=== PATIENT | male | born 1960 | race Caucasian/White ===

== ENCOUNTER 2021-10-01 20:28 | Inpatient (IN) | payer OTHER ==
[~2021-10-01] VITALS: Ht 185.4 cm; Wt 110.0 kg
--- NOTE | 2021-10-01 20:43 | PHYS DOC ---
Past Medical History Past Medical History: High Cholesterol, Hypertension General Adult EDM: Chief Complaint: SHORTNESS OF BREATH HPI: HPI: Patient is a 61 year old male with history of HTN, HLD, and vaccinated for COVID with positive Covid test on 09/27/2021 who presents with shortness of breath and hypoxia prehospital. States that he has had symptoms for 2-3 weeks that have progressively worsened. Was seen at an outside facility and diagnosed with Covid on the . Reportedly did not require oxygen and was discharged home. He has been taking Advil for symptom management. Denies chest pain, lower extremity edema. Has been coughing frequently. Review of Systems: Review of Systems: Constitutional: Reports fever and chills Eyes: Denies change in visual acuity. [] HENT: Reports nasal congestion Respiratory: Reports cough and shortness of breath Cardiovascular: Denies chest pain or edema. [] GI: Denies abdominal pain, nausea, vomiting, bloody stools or diarrhea. [] Musculoskeletal: Denies back pain or joint pain. [] Integument: Denies rash. [] Neurologic: Denies headache, focal weakness or sensory changes. [] Psychiatric: Denies depression or anxiety. [] Heart Score: C/O Chest Pain: No Allergies: Allergies: Allergies Coded Allergies Type Severity Reaction Last Updated Verified No Known Drug Allergies 10/01/21 No Physical Exam: PE: Constitutional: Increased work of breathing, tachypnea in the upper 20s Neck: Normal range of motion, no tenderness, supple, no stridor. [] Cardiovascular:Heart rate regular rhythm, no murmur [] Lungs & Thorax: Crackles bilaterally, tachypnea Abdomen: Bowel sounds normal, soft, no tenderness, no masses, no pulsatile masses. [] Skin: Warm, dry, no erythema, no rash. [] Back: No tenderness, no CVA tenderness. [] Extremities: No tenderness, no cyanosis, no clubbing, ROM intact, no edema. [] Neurologic: Alert and oriented X 3, normal motor function, normal sensory function, no focal deficits noted. [] Psychologic: Affect normal, judgement normal, mood normal. [] Current Patient Data: Labs: Laboratory Tests Test 10/01/21 20:50 White Blood Count 6.1 x10^3/uL Red Blood Count 4.24 x10^6/uL Hemoglobin 13.5 g/dL Hematocrit 38.2 % Mean Corpuscular Volume 90 fL Mean Corpuscular Hemoglobin 32 pg Mean Corpuscular Hemoglobin Concent 35 g/dL Red Cell Distribution Width 13.6 % Platelet Count 349 x10^3/uL Neutrophils (%) (Auto) 71 % Lymphocytes (%) (Auto) 13 % Monocytes (%) (Auto) 16 % Eosinophils (%) (Auto) 1 % Basophils (%) (Auto) 0 % Neutrophils # (Auto) 4.3 x10^3/uL Lymphocytes # (Auto) 0.8 x10^3/uL Monocytes # (Auto) 0.9 x10^3/uL Eosinophils # (Auto) 0.0 x10^3/uL Basophils # (Auto) 0.0 x10^3/uL Sodium Level 139 mmol/L Potassium Level 3.1 mmol/L Chloride Level 105 mmol/L Carbon Dioxide Level 25 mmol/L Anion Gap 9 Blood Urea Nitrogen 15 mg/dL Creatinine 1.2 mg/dL Estimated GFR (Cockcroft-Gault) 61.6 BUN/Creatinine Ratio 13 Glucose Level 95 mg/dL Calcium Level 8.0 mg/dL Total Bilirubin Pending Aspartate Amino Transf (AST/SGOT) Pending Alanine Aminotransferase (ALT/SGPT) Pending Alkaline Phosphatase Pending Total Protein Pending Albumin Pending Albumin/Globulin Ratio Pending Current Medications Medications (Trade) Dose Ordered Sig/Maia Route PRN Reason Start Time Stop Time Status Last Admin Dose Admin Dexamethasone Sodium Phosphate (Decadron) 6 mg 1X ONCE IVP 10/01/21 21:00 10/01/21 21:01 DC Potassium Chloride (Klor-Con) 40 meq 1X ONCE PO 10/01/21 21:30 10/01/21 21:31 EKG: EKG: [] Sinus rhythm. Rate 77. Normal axis. Normal intervals. No ST elevation or depression. No pathologic Q waves, or T wave inversion. Radiology/Procedures: Radiology/Procedures: [] Impression: [facility] [address] [place] [address] IMAGING REPORT Signed PATIENT: YVONNE THOMPSON ACCOUNT: [id number] : 1960 LOCATION: ER AGE: 61 SEX: M EXAM STATUS: REG ER ORD. PHYSICIAN: NICO MOREL MD REASON: covid +, SOB PROCEDURE: CHEST AP ONLY AP chest. HISTORY: Covid positive, short of breath AP view was taken of the chest. There are patchy bilateral infiltrates consistent with Covid pneumonia. Heart is normal in size. There is no effusion. IMPRESSION: 1. Bilateral infiltrates. Electronically signed by: Gee Subramanian MD (10/01/2021 9:12 PM) [facility] DICTATED and SIGNED BY: GEE SUBRAMANIAN MD DATE: 10/01/[id number] 0 Course & Med Decision Making: Course & Med Decision Making Pertinent Labs and Imaging studies reviewed. (See chart for details) Patient is a 61-year-old male unvaccinated for COVID who presents with dyspnea and hypoxia after having a positive Covid test on 09/27/2021. 86% on room air. Recovered with 4 L/min nasal cannula. CXR consistent with covid pna with patchy interstitial infiltrates bilaterally. Dexamethasone ordered. Patient will clearly require admission for respiratory failure with hypoxia 2/2 covid. Dragon Disclaimer: Dragon Disclaimer: This electronic medical record was generated, in whole or in part, using a voice recognition dictation system. Departure Departure Impression: Primary Impression: COVID-19 Additional Impression: Respiratory failure with hypoxia Disposition: ADMITTED INPATIENT Admitting Physician: PEDRO Velez) Condition: STABLE NICO MOREL MD Oct 01, 2021 20:43
[2021-10-01 21:00] LABS: BASO % 0 % (0-3); EOS % 1 % (0-3); HEMATOCRIT 38.2 % (39.0-53.0); HEMOGLOBIN 13.5 g/dL (13.0-17.5); LYMPH # 0.8 x10^3/uL (1.0-4.8); LYMPH % 13 % (24-48); MEAN CORPUSCULAR HEMOGLOBIN 32 pg (25-35); MEAN CORPUSCULAR HGB CONC 35 g/dL (31-37); MEAN CORPUSCULAR VOLUME 90 fL (79-100); MONO # 0.9 x10^3/uL (0.0-1.1); MONO % 16 % (0-9); NEUT # 4.3 x10^3/uL (1.8-7.7); NEUT % 71 % (31-73); PLATELET COUNT 349 x10^3/uL (140-400); RED BLOOD COUNT 4.24 x10^6/uL (4.30-5.70); RED CELL DISTRIBUTION WIDTH 13.6 % (11.5-14.5); WHITE BLOOD COUNT 6.1 x10^3/uL (4.0-11.0)
[2021-10-01] MEDS ORDERED: DEXAMETHASONE SOD PHOS 4 MG/ML VIAL IVP ONE (21:00)
[2021-10-01 21:09] LABS: CREATININE 1.2 mg/dL (0.7-1.3); GFR 61.6; POTASSIUM 3.1 mmol/L (3.5-5.1)
[2021-10-01] MEDS ORDERED: SIMV40TA18 PO (21:11)
[2021-10-01] MEDS ORDERED: ONDA4TAB12 PO (21:13)
[2021-10-01] MEDS ORDERED: LISI-130 PO (21:13)
[2021-10-01] MEDS ORDERED: CHOL10004 PO (21:13)
[2021-10-01] MEDS ORDERED: CITA40TA6 PO (21:13)
[2021-10-01] MEDS ORDERED: ASPI-630 PO (21:13)
[2021-10-01] MEDS ORDERED: LEVO-101 PO (21:13)
[2021-10-01] MEDS ORDERED: ASCO100T4 PO (21:13)
[2021-10-01 21:15] LABS: ALBUMIN 2.6 g/dL (3.4-5.0); ALBUMIN/GLOBULIN RATIO 0.5 (1.0-1.7); TOTAL BILIRUBIN 0.9 mg/dL (0.2-1.0); TOTAL PROTEIN 7.7 g/dL (6.4-8.2)
--- NOTE | 2021-10-01 21:15 | RAD ---
AP chest. HISTORY: Covid positive, short of breath AP view was taken of the chest. There are patchy bilateral infiltrates consistent with Covid pneumoni a. Heart is normal in size. There is no effusion. IMPRESSION: 1. Bilateral infiltrates. Electronically signed by: Gee Subramanian MD (10/01/2021 9:12 PM) [facility]
[2021-10-01] MEDS ORDERED: POTASSIUM CHLORIDE 20 MEQ TABLET.ER. PO ONE (21:30)
[2021-10-01 23:00] VITALS: BP 124/58
--- NOTE | 2021-10-02 00:35 | EKG ---
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
[2021-10-02 02:45] VITALS: BP 124/74
--- NOTE | 2021-10-02 04:48 | NUR ---
Pt's HR 30-40's during the noc. Pt asymptomatic. No complaints noted. Bp taken when pt's HR drops and currently within normal limits. Pt states not being aware of having low HR. 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 Pt HR increasing to 50-60's when this nurse wakes up the pt. No further complaints at this time. Paged global position system technician Physician to notify of pt's HR.
[2021-10-02 04:50] VITALS: BP 117/74
--- NOTE | 2021-10-02 07:07 | PDOC1 ---
History and Physical Date of Admission Date of Admission DATE: 10/02/21 TIME: 07:06 Identification/Chief Complaint Chief Complaint Shortness of breath Source Source: Patient History of Present Illness History of Present Illness Mr Eduardo is a 61 year old male with history of HTN, HLD, and hypothyroidism who presents via EMS c/o worsening shortness of breath. He notes positive Covid test on 09/26/2021 at [facility] who presents with shortness of breath and hypoxia, notably per EMS with O2 saturations 86% on arrival. States that he has had symptoms for 3 weeks that have progressively worsened. Reportedly did not require oxygen when seen in the ED on 09/26/21 and was discharged home with recommendation for supportive care with NSAIDs Denies chest pain, lower extremity edema. Has been coughing frequently. Loss of appetite. 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 Does not drink, smoke or take illicit drugs. Labs with WBC 6.1, Hb 13.5, platelets 349, NA 139, K3.1, BUN 15, CR 1.2, glucose 95, calcium 8, magnesium 2.1, bilirubin 0.9, AST 37, ALT 37, alk phos 39, al bumin 2.6 Chest radiograph with bilateral infiltrates EKG sinus rhythm at 77 bpm normal axis and intervals no ST depressions or TWI. Admitted for further care Past Medical History Cardiovascular: HTN Endocrine: Hypothyroidism Past Surgical History Past Surgical History: No pertinent history Family History Family History: High Cholestrol, Hypertension Social History Smoke: No ALCOHOL: none Drugs: None Current Problem List Problem List Problems Medical Problems: (1) COVID-19 Status: Acute (2) Respiratory failure with hypoxia Status: Acute Current Medications Current Medications Current Medications Dexamethasone Sodium Phosphate (Decadron) 6 mg 1X ONCE IVP Last administered on 10/01/21at 21:23; Start 10/01/21 at 21:00; Stop 10/01/21 at 21:01; Status DC Potassium Chloride (Klor-Con) 40 meq 1X ONCE PO Last administered on 10/01/21at 21:23; Start 10/01/21 at 21:30; Stop 10/01/21 at 21:31; Status DC Active Scripts Active Reported Ondansetron Odt (Ondansetron) 4 Mg Tab.rapdis 1 Tab PO PRN Q6-8HRS Vitamin C (Ascorbic Acid) 100 Mg Tablet 1 Tab PO DAILY 30 Days Vitamin D3 (Vitamin D) 25 Mcg Tablet 25 Mcg PO DAILY 1,000 UNITS = 25 MCG Aspirin 81 Mg Tab.chew 1 Tab PO DAILY Lisinopril 40 Mg Tablet 1 Tab PO DAILY Synthroid (Levothyroxine Sodium) 100 Mcg Tablet 1 Tab PO DAILY Citalopram Hbr (Citalopram Hydrobromide) 40 Mg Tablet 1 Tab PO DAILY Simvastatin 40 Mg Tablet 1 Tab PO QHS Allergies Allergies: Coded Allergies: No Known Drug Allergies (Unverified , 10/01/21) ROS General: YES: Chills, Night Sweats, Fatigue, Malaise, Appetite; No: Other PSYCHOLOGICAL ROS: No: Anxiety, Behavioral Disorder, Concentration difficultie, Decreased libido, Depression, Disorientation, Hallucinations, Hostility, Irritablity, Memory difficulties, Mood Swings, Obsessive thoughts, Physical abuse, Sexual abuse, Sleep disturbances, Suicidal ideation, Other Eyes: No Blurry vision, No Decreased vision, No Double vision, No Dry eyes, No Excessive tearing, No Eye Pain, No Itchy Eyes, No Loss of vision, No Photophobia, No Scotomata, No Uses contacts, No Uses glasses, No Other HEENT: YES: Heacaches, Nasal congestion, Nasal discharge; No: Visual Changes, Hearing change, Oral lesions, Sinus pain, Sore Throat, Epistaxis, Sneezing, Snoring, Tinnitus, Vertigo, Vocal changes, Other ALLERGY AND IMMUNOLOGY: No: Hives, Insect Bite Sensitivity, Itchy/Watery Eyes, Nasal Congestion, Post Nasal Drip, Seasonal Allergies, Other Hematological and Lymphatic: No: Bleeding Problems, Blood Clots, Blood Transfusions, Brusing, Night Sweats, Pallor, Swollen Lymph Nodes, Other ENDOCRINE: No: Breast Changes, Galactorrhea, Hair Pattern Changes, Hot Flashes, Malaise/lethargy, Mood Swings, Palpitations, Polydipsia/polyuria, Skin Changes, Temperature Intolerance, Unexpected Weight Changes, Other Breast: No New/Changing Breast Lumps, No Nipple changes, No Nipple discharge, No Other Respiratory: YES: Cough, Shortness of breath, SOB with excertion; No: Hemoptysis, Orthopnea, Pleuritic Pain, Sputum Changes, Stridor, Tachypnea, Wheezing, Other Cardiovascular: No Chest Pain, No Palpitations, No Orthopnea, No Paroxysmal Noc. Dyspnea, No Edema, No Lt Headedness, No Other Gastrointestinal: Yes Nausea, Yes Diarrhea; No Vomiting, No Abdominal Pain, No Constipation, No Melena, No Hematochezia, No Other Genitourinary: No Dysuria, No Frequency, No Incontinence, No Hematuria, No Retention, No Discharge, No Urgency, No Pain, No Flank Pain, No Other, No , No , No , No , No , No , No Musculoskeletal: Yes Muscle Pain, Yes Muscular Weakness; No Gait Disturbance, No Joint Pain, No Joint Stiffness, No Joint Swelling, No Pain In:, No Swelling In:, No Other Neurological: No Behavorial Changes, No Bowel/Bladder ControlChng, No Confusion, No Dizziness, No Gait Disturbance, No Headaches, No Impaired Coord/balance, No Memory Loss, No Numbness/Tingling, No Seizures, No Speech Problems, No Tremors, No Visual Changes, No Weakness, No Other Skin: No Dry Skin, No Eczema, No Hair Changes, No Lumps, No Mole Changes, No Mottling, No Nail Changes, No Pruritus, No Rash, No Skin Lesion Changes, No Other, No Acne Physical Exam General: Alert, Oriented X3, Cooperative, moderate distress HEENT: Atraumatic, PERRLA, EOMI, Mucous membr. moist/pink Lungs: Clear to auscultation, Normal air movement Heart: S1S2, RRR, no thrills, no rubs, no gallops, no murmurs Abdomen: Normal bowel sounds, Soft, No tenderness, No hepatosplenomegaly, No masses Rectal Exam: not examined Extremities: No clubbing, No cyanosis, No edema, Normal pulses, No tenderness/swelling Skin: No rashes, No breakdown, No significant lesion Neuro: Normal gait, Normal speech, Strength at 5/5 X4 ext, Normal tone, Sensati on intact, Cranial nerves 3-12 NL, Reflexes 2+ Psych/Mental Status: Mental status NL, Mood NL Vitals Vitals Vital Signs Date Time Temp Pulse Resp B/P (MAP) Pulse Ox O2 Delivery O2 Flow Rate FiO2 10/02/21 04:50 41 18 117/74 (88) 96 Nasal Cannula 4.0 10/02/21 04:16 97.3 97.3 Labs Labs Laboratory Tests Test 1/30/22 20:50 White Blood Count 6.1 x10^3/uL (4.0-11.0) Red Blood Count 4.24 x10^6/uL (4.30-5.70) Hemoglobin 13.5 g/dL (13.0-17.5) Hematocrit 38.2 % (39.0-53.0) Mean Corpuscular Volume 90 fL (79-100) Mean Corpuscular Hemoglobin 32 pg (25-35) Mean Corpuscular Hemoglobin Concent 35 g/dL (31-37) Red Cell Distribution Width 13.6 % (11.5-14.5) Platelet Count 349 x10^3/uL (140-400) Neutrophils (%) (Auto) 71 % (31-73) Lymphocytes (%) (Auto) 13 % (24-48) Monocytes (%) (Auto) 16 % (0-9) Eosinophils (%) (Auto) 1 % (0-3) Basophils (%) (Auto) 0 % (0-3) Neutrophils # (Auto) 4.3 x10^3/uL (1.8-7.7) Lymphocytes # (Auto) 0.8 x10^3/uL (1.0-4.8) Monocytes # (Auto) 0.9 x10^3/uL (0.0-1.1) Eosinophils # (Auto) 0.0 x10^3/uL (0.0-0.7) Basophils # (Auto) 0.0 x10^3/uL (0.0-0.2) Sodium Level 139 mmol/L (136-145) Potassium Level 3.1 mmol/L (3.5-5.1) Chloride Level 105 mmol/L (98-107) Carbon Dioxide Level 25 mmol/L (21-32) Anion Gap 9 (6-14) Blood Urea Nitrogen 15 mg/dL (8-26) Creatinine 1.2 mg/dL (0.7-1.3) Estimated GFR (Cockcroft-Gault) 61.6 BUN/Creatinine Ratio 13 (6-20) Glucose Level 95 mg/dL (70-99) Calcium Level 8.0 mg/dL (8.5-10.1) Magnesium Level 2.1 mg/dL (1.8-2.4) Total Bilirubin 0.9 mg/dL (0.2-1.0) Aspartate Amino Transf (AST/SGOT) 37 U/L (15-37) Alanine Aminotransferase (ALT/SGPT) 37 U/L (16-63) Alkaline Phosphatase 39 U/L (46-116) Total Protein 7.7 g/dL (6.4-8.2) Albumin 2.6 g/dL (3.4-5.0) Albumin/Globulin Ratio 0.5 (1.0-1.7) Laboratory Tests Test 10/01/21 20:50 White Blood Count 6.1 x10^3/uL (4.0-11.0) Red Blood Count 4.24 x10^6/uL (4.30-5.70) Hemoglobin 13.5 g/dL (13.0-17.5) Hematocrit 38.2 % (39.0-53.0) Mean Corpuscular Volume 90 fL (79-100) Mean Corpuscular Hemoglobin 32 pg (25-35) Mean Corpuscular Hemoglobin Concent 35 g/dL (31-37) Red Cell Distribution Width 13.6 % (11.5-14.5) Platelet Count 349 x10^3/uL (140-400) Neutrophils (%) (Auto) 71 % (31-73) Lymphocytes (%) (Auto) 13 % (24-48) Monocytes (%) (Auto) 16 % (0-9) Eosinophils (%) (Auto) 1 % (0-3) Basophils (%) (Auto) 0 % (0-3) Neutrophils # (Auto) 4.3 x10^3/uL (1.8-7.7) Lymphocytes # (Auto) 0.8 x10^3/uL (1.0-4.8) Monocytes # (Auto) 0.9 x10^3/uL (0.0-1.1) Eosinophils # (Auto) 0.0 x10^3/uL (0.0-0.7) Basophils # (Auto) 0.0 x10^3/uL (0.0-0.2) Sodium Level 139 mmol/L (136-145) Potassium Level 3.1 mmol/L (3.5-5.1) Chloride Level 105 mmol/L (98-107) Carbon Dioxide Level 25 mmol/L (21-32) Anion Gap 9 (6-14) Blood Urea Nitrogen 15 mg/dL (8-26) Creatinine 1.2 mg/dL (0.7-1.3) Estimated GFR (Cockcroft-Gault) 61.6 BUN/Creatinine Ratio 13 (6-20) Glucose Level 95 mg/dL (70-99) Calcium Level 8.0 mg/dL (8.5-10.1) Magnesium Level 2.1 mg/dL (1.8-2.4) Total Bilirubin 0.9 mg/dL (0.2-1.0) Aspartate Amino Transf (AST/SGOT) 37 U/L (15-37) Alanine Aminotransferase (ALT/SGPT) 37 U/L (16-63) Alkaline Phosphatase 39 U/L (46-116) Total Protein 7.7 g/dL (6.4-8.2) Albumin 2.6 g/dL (3.4-5.0) Albumin/Globulin Ratio 0.5 (1.0-1.7) VTE Prophylaxis Ordered VTE Prophylaxis Devices: No VTE Pharmacological Prophylaxi: Yes Assessment/Plan Assessment/Plan A/P: Acute respiratory failure with hypoxia - due to COVID 19. Will treat with steroids, supportive care, remdesivir COVID 19 - decadron, supportive care, O2 HTN - will reconcile home medications Hypothyroidism - cont home levothyroxine HLD - cont statin Hypokalemia - likely nutritional, will replace, follow mag Bradycardia - while sleeping, HR increases upon awakening. Will monitor FEN - regular diet PPX - lovenox FULL CODE Dispo - inpatient Justifications for Admission Other Justification KARLA LANIER MD Oct 02, 2021 07:07
[2021-10-02] MEDS ORDERED: ACETAMINOPHEN 325 MG TABLET. PO PRN (07:15)
[2021-10-02] MEDS ORDERED: fentaNYL PF VIAL 100 MCG/2 ML VIAL IVP PRN (07:15)
[2021-10-02] MEDS ORDERED: guaiFENesin DM 200MG/20MG 10 ML SYRUP PO PRN (07:15)
[2021-10-02] MEDS ORDERED: ONDANSETRON PF 4 MG/2 ML VIAL. IVP PRN (07:15)
[2021-10-02] MEDS ORDERED: KETOROLAC 30 MG/ML VIAL. IVP PRN (07:15)
[2021-10-02] MEDS ORDERED: traMADol 50 MG TABLET PO PRN (07:15)
[2021-10-02] MEDS: DEXAMETHASONE SOD PHOS 4 MG/ML VIAL IVP SCH (08:40)
[2021-10-02] MEDS: ENOXAPARIN 40 MG/0.4 ML SYRINGE. SQ SCH (08:40)
[2021-10-02] MEDS: POTASSIUM CL 20MEQ D5-0.45NACL 1,000 ML IV SCH ×2 (08:41→21:58)
[2021-10-02 09:17] LABS: ALBUMIN 2.5 g/dL (3.4-5.0); ALBUMIN/GLOBULIN RATIO 0.5 (1.0-1.7); CALCIUM 8.3 mg/dL (8.5-10.1); POTASSIUM 4.1 mmol/L (3.5-5.1); TOTAL BILIRUBIN 0.8 mg/dL (0.2-1.0); TOTAL PROTEIN 7.1 g/dL (6.4-8.2)
--- NOTE | 2021-10-02 17:19 | NUR ---
Nurse's note: The patient arrived on the unit at 1640 via bed. He is awake, alert, oriented x4, and denies pain. Oxygen 4 liters per nasal cannula was placed with O2 saturation at 93%; hooked to classroom monitor. He's oriented to his room and unit policies; call light placed within reach.
[2021-10-02 19:00] VITALS: BP 145/70
[2021-10-02] MEDS ORDERED: ONDANSETRON ODT 4 MG TAB.RAPDIS. PO PRN (20:15)
[2021-10-02] MEDS: SIMVASTATIN 40 MG TABLET. PO SCH (20:30)
[2021-10-02 23:32] VITALS: BP 131/74
[2021-10-03] MEDS: ZOLPIDEM 5 MG TABLET. PO PRN ×2 (00:17→20:45)
[2021-10-03 03:11] VITALS: BP 118/79
[2021-10-03] MEDS: LEVOTHYROXINE 100 MCG TABLET PO SCH (05:35)
[2021-10-03 07:00] VITALS: BP 132/79
[2021-10-03 08:01] LABS: HEMOGLOBIN 12.3 g/dL (13.0-17.5); RED BLOOD COUNT 3.91 x10^6/uL (4.30-5.70); RED CELL DISTRIBUTION WIDTH 13.8 % (11.5-14.5); WHITE BLOOD COUNT 11.9 x10^3/uL (4.0-11.0)
[2021-10-03] MEDS: CITALOPRAM 20 MG TABLET. PO SCH (08:35)
[2021-10-03] MEDS: ASCORBIC ACID 500 MG TABLET PO SCH (08:35)
[2021-10-03] MEDS: DEXAMETHASONE SOD PHOS 4 MG/ML VIAL IVP SCH (08:35)
[2021-10-03] MEDS: CHOLECALCIFEROL (VITAMIN D3) 1,000 UNIT TABLET PO SCH (08:35)
[2021-10-03] MEDS: ASPIRIN CHEWABLE 81 MG TABLET. PO SCH (08:36)
[2021-10-03] MEDS: ENOXAPARIN 40 MG/0.4 ML SYRINGE. SQ SCH (08:36)
[2021-10-03] MEDS: LISINOPRIL 20 MG TABLET PO SCH (08:36)
[2021-10-03 08:41] LABS: ALBUMIN 2.4 g/dL (3.4-5.0); ALBUMIN/GLOBULIN RATIO 0.6 (1.0-1.7); POTASSIUM 4.4 mmol/L (3.5-5.1); TOTAL BILIRUBIN 0.5 mg/dL (0.2-1.0); TOTAL PROTEIN 6.5 g/dL (6.4-8.2)
[2021-10-03] MEDS ORDERED: REMDESIVIR LOAD in IV NORMAL SALINE 250ML TV IV ONE (09:00)
[2021-10-03 11:00] VITALS: BP 126/62
--- NOTE | 2021-10-03 13:04 | PDOC ---
[employer] PROGRESS NOTE Date of Service DOS: DATE: 10/03/21 TIME: 13:01 Chief Complaint Chief Complaint Assessment/Plan Acute respiratory failure with hypoxia - due to COVID 19. Will treat with steroids, supportive care, remdesivir COVID 19 - decadron, supportive care, O2 HTN - will reconcile home medications Hypothyroidism - cont home levothyroxine HLD - cont statin Hypokalemia - likely nutritional, will replace, follow mag Bradycardia - while sleeping, HR increases upon awakening. Will monitor FEN - regular diet PPX - lovenox FULL CODE Dispo - inpatient History of Present Illness History of Present Illness 61 year old male with history of HTN, HLD, and hypothyroidism who presents via EMS c/o worsening shortness of breath. He notes positive Covid test on 09/26/2021 at [facility] who presents with shortness of breath and hypoxia, notably per EMS with O2 saturations 86% on arrival. States that he has had symptoms for 3 weeks that have progressively worsened. Reportedly did not require oxygen when seen in the ED on 09/26/21 and was discharged home with recommendation for supportive care with NSAIDs Denies chest pain, lower extremity edema. Has been coughing frequently. Loss of appetite. 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 Does not drink, smoke or take illicit drugs. Labs with WBC 6.1, Hb 13.5, platelets 349, NA 139, K3.1, BUN 15, CR 1.2, glucose 95, calcium 8, magnesium 2.1, bilirubin 0.9, AST 37, ALT 37, alk phos 39, albumin 2.6 Chest radiograph with bilateral infiltrates EKG sinus rhythm at 77 bpm normal axis and intervals no ST depressions or TWI. Admitted for further care 10/03/2021 No acute events night. Patient seen examined bedside. Patient saturating 94% on 4 L nasal cannula. Not dyspneic upon my encounter. Patient's chart, labs, images were reviewed and discussed with RN Vitals/I&O Vitals/I&O: Vital Signs Date Time Temp Pulse Resp B/P (MAP) Pulse Ox O2 Delivery O2 Flow Rate FiO2 10/03/21 11:00 97.6 61 17 126/62 (83) 95 Nasal Cannula 4.0 97.6 I & O 1/10/02/21 10/03/21 15:00 23:00 07:00 Intake Total 180 ml Output Total 200 ml 400 ml Balance -200 ml 180 ml -400 ml Physical Exam General: Alert, Oriented X3, Cooperative, moderate distress Abdomen: Normal bowel sounds, Soft, No tenderness, No hepatosplenomegaly, No masses Extremities: No clubbing, No cyanosis, No edema, Normal pulses, No tenderness/swelling Skin: No rashes, No breakdown, No significant lesion Labs Labs: Laboratory Tests Test 10/03/21 06:20 10/03/21 06:30 Sodium Level 143 mmol/L (136-145) Potassium Level 4.4 mmol/L (3.5-5.1) Chloride Level 107 mmol/L (98-107) Carbon Dioxide Level 29 mmol/L (21-32) Anion Gap 7 (6-14) Blood Urea Nitrogen 20 mg/dL (8-26) Creatinine 1.0 mg/dL (0.7-1.3) Estimated GFR (Cockcroft-Gault) 76.0 BUN/Creatinine Ratio 20 (6-20) Glucose Level 129 mg/dL (70-99) Calcium Level 8.0 mg/dL (8.5-10.1) Total Bilirubin 0.5 mg/dL (0.2-1.0) Aspartate Amino Transf (AST/SGOT) 29 U/L (15-37) Alanine Aminotransferase (ALT/SGPT) 33 U/L (16-63) Alkaline Phosphatase 37 U/L (46-116) Total Protein 6.5 g/dL (6.4-8.2) Albumin 2.4 g/dL (3.4-5.0) Albumin/Globulin Ratio 0.6 (1.0-1.7) White Blood Count 11.9 x10^3/uL (4.0-11.0) Red Blood Count 3.91 x10^6/uL (4.30-5.70) Hemoglobin 12.3 g/dL (13.0-17.5) Hematocrit 36.0 % (39.0-53.0) Mean Corpuscular Volume 92 fL (79-100) Mean Corpuscular Hemoglobin 32 pg (25-35) Mean Corpuscular Hemoglobin Concent 34 g/dL (31-37) Red Cell Distribution Width 13.8 % (11.5-14.5) Platelet Count 386 x10^3/uL (140-400) Assessment and Plan Assessmemt and Plan Problems Medical Problems: (1) COVID-19 Status: Acute (2) Respiratory failure with hypoxia Status: Acute Comment Review of Relevant I have reviewed the following items michelle (where applicable) has been applied. Medications: Current Medications Medications (Trade) Dose Ordered Sig/Maia Route PRN Reason Start Time Stop Time Status Last Admin Dose Admin Aspirin (Aspirin Chewable) 81 mg DAILY PO 10/03/21 09:00 10/03/21 08:36 Vitamin D (Vitamin D3) 1,000 unit DAILY PO 10/03/21 09:00 10/03/21 08:35 Levothyroxine Sodium (Synthroid) 100 mcg DAILY07 PO 10/03/21 07:00 10/03/21 05:35 Lisinopril (Prinivil) 40 mg DAILY PO 10/03/21 09:00 10/03/21 08:36 Simvastatin (Zocor) 40 mg QHS PO 10/02/21 21:00 10/02/21 20:30 Ascorbic Acid (Vitamin C) 500 mg DAILY PO 10/03/21 09:00 10/03/21 08:35 Citalopram Hydrobromide (CeleXA) 40 mg DAILY PO 10/03/21 09:00 10/03/21 08:35 Zolpidem Tartrate (Ambien) 5 mg PRN QHS PRN PO INSOMNIA, MAY REPEAT IN 1HR 10/03/21 00:00 10/03/21 00:17 Remdesivir 200 mg/ Sodium Chloride 210 ml @ 210 mls/hr 1X ONCE IV 10/03/21 09:00 10/03/21 09:59 DC 10/03/21 09:50 Justifications for Admission Other Justification CHRIS FOUNTAIN MD Oct 03, 2021 13:04
--- NOTE | 2021-10-03 14:03 | NUR ---
SW following. Discussed with RN, pt from home, 4L (does not use oxygen at home), regular diet, COVID-19 positive. Pt on Remdesivir. Oxygen will cost $120 a month if pt requires upon discharge due to self pay status. Med Assist following for self pay. SW will continue to follow.
[2021-10-03 15:00] VITALS: BP 112/69
[2021-10-03 19:00] VITALS: BP_SYST 133; BP_SYST 18; BP_DIAS 65; BP_DIAS 82
[2021-10-03] MEDS: SIMVASTATIN 40 MG TABLET. PO SCH (20:45)
[2021-10-03 23:00] VITALS: BP 129/68
[2021-10-04 03:00] VITALS: BP 137/77
[2021-10-04] MEDS: LEVOTHYROXINE 100 MCG TABLET PO SCH (05:54)
[2021-10-04 07:00] VITALS: BP 137/79
[2021-10-04] MEDS: ENOXAPARIN 40 MG/0.4 ML SYRINGE. SQ SCH (08:17)
[2021-10-04] MEDS: CITALOPRAM 20 MG TABLET. PO SCH (08:17)
[2021-10-04] MEDS: CHOLECALCIFEROL (VITAMIN D3) 1,000 UNIT TABLET PO SCH (08:17)
[2021-10-04] MEDS: ASCORBIC ACID 500 MG TABLET PO SCH (08:17)
[2021-10-04] MEDS: ASPIRIN CHEWABLE 81 MG TABLET. PO SCH (08:17)
[2021-10-04] MEDS: DEXAMETHASONE SOD PHOS 4 MG/ML VIAL IVP SCH (08:18)
[2021-10-04] MEDS: LISINOPRIL 20 MG TABLET PO SCH (08:18)
[2021-10-04 08:53] LABS: ALBUMIN 2.4 g/dL (3.4-5.0); ALBUMIN/GLOBULIN RATIO 0.5 (1.0-1.7); TOTAL BILIRUBIN 0.5 mg/dL (0.2-1.0); TOTAL PROTEIN 6.8 g/dL (6.4-8.2)
[2021-10-04] MEDS: REMDESIVIR 100mg in NORMAL SALINE 250ML X 4 DAYS IV SCH (09:56)
[2021-10-04 11:00] VITALS: BP 127/75
--- NOTE | 2021-10-04 11:09 | PDOC ---
[employer] PROGRESS NOTE Date of Service DOS: DATE: 10/04/21 TIME: 11:05 Chief Complaint Chief Complaint Acute respiratory failure with hypoxia - due to COVID 19. Will treat with steroids, supportive care, remdesivir COVID 19 - decadron, supportive care, O2 HTN - will reconcile home medications Hypothyroidism - cont home levothyroxine HLD - cont statin Hypokalemia - likely nutritional, will replace, follow mag Bradycardia - while sleeping, HR increases upon awakening. Will monitor History of Present Illness History of Present Illness 61 year old male with history of HTN, HLD, and hypothyroidism who presents via EMS c/o worsening shortness of breath. He notes positive Covid test on 09/26/2021 at [facility] who presents with shortness of breath and hypoxia, notably per EMS with O2 saturations 86% on arrival. States that he has had symptoms for 3 weeks that have progressively worsened. Reportedly did not require oxygen when seen in the ED on 09/26/21 and was discharged home with recommendation for supportive care with NSAIDs Denies chest pain, lower extremity edema. Has been coughing frequently. Loss of appetite. 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 Does not drink, smoke or take illicit drugs. Labs with WBC 6.1, Hb 13.5, platelets 349, NA 139, K3.1, BUN 15, CR 1.2, glucose 95, calcium 8, magnesium 2.1, bilirubin 0.9, AST 37, ALT 37, alk phos 39, albumin 2.6 Chest radiograph with bilateral infiltrates EKG sinus rhythm at 77 bpm normal axis and intervals no ST depressions or TWI. Admitted for further care 10/03/2021 No acute events night. Patient seen examined bedside. Patient saturating 94% on 4 L nasal cannula. Not dyspneic upon my encounter. Patient's chart, labs, images were reviewed and discussed with RN 10/04/2021 Patient seen and examined. Patient is on Day 1 of Remdesivir. Chart Reviewed Discussed with RN Vitals/I&O Vitals/I&O: Vital Signs Date Time Temp Pulse Resp B/P (MAP) Pulse Ox O2 Delivery O2 Flow Rate FiO2 10/04/21 08:18 49 137/79 10/04/21 08:00 Nasal Cannula 4.0 10/04/21 07:00 97.1 18 94 97.1 I & O 10/03/21 10/03/21 10/04/21 15:00 23:00 07:00 Intake Total 480 ml 240 ml 200 ml Output Total 600 ml 250 ml Balance 480 ml -360 ml -50 ml Physical Exam General: Alert, Oriented X3, Cooperative, moderate distress Abdomen: Normal bowel sounds, Soft, No tenderness, No hepatosplenomegaly, No masses Extremities: No clubbing, No cyanosis, No edema, Normal pulses, No tenderness/swelling Skin: No rashes, No breakdown, No significant lesion Labs Labs: Laboratory Tests Test 10/04/21 08:15 Sodium Level 144 mmol/L (136-145) Potassium Level 4.0 mmol/L (3.5-5.1) Chloride Level 109 mmol/L (98-107) Carbon Dioxide Level 25 mmol/L (21-32) Anion Gap 10 (6-14) Blood Urea Nitrogen 19 mg/dL (8-26) Creatinine 1.0 mg/dL (0.7-1.3) Estimated GFR (Cockcroft-Gault) 76.0 BUN/Creatinine Ratio 19 (6-20) Glucose Level 84 mg/dL (70-99) Calcium Level 8.0 mg/dL (8.5-10.1) Total Bilirubin 0.5 mg/dL (0.2-1.0) Aspartate Amino Transf (AST/SGOT) 30 U/L (15-37) Alanine Aminotransferase (ALT/SGPT) 38 U/L (16-63) Alkaline Phosphatase 36 U/L (46-116) Total Protein 6.8 g/dL (6.4-8.2) Albumin 2.4 g/dL (3.4-5.0) Albumin/Globulin Ratio 0.5 (1.0-1.7) Assessment and Plan Assessmemt and Plan Assessment: Acute respiratory failure with hypoxia - due to COVID 19. Will treat with steroids, supportive care, remdesivir COVID 19 - decadron, supportive care, O2 HTN - will reconcile home medications Hypothyroidism - cont home levothyroxine HLD - cont statin Hypokalemia - likely nutritional, will replace, follow mag Bradycardia - while sleeping, HR increases upon awakening. Will monitor Plan: Continue covid protocol: Remdesivir, steroids, multivitamins, aspirin, lovenox Home Meds DVT prophylaxis Full code Encourage PO intake Comment Review of Relevant I have reviewed the following items michelle (where applicable) has been applied. Medications: Current Medications Medications (Trade) Dose Ordered Sig/Maia Route PRN Reason Start Time Stop Time Status Last Admin Dose Admin Remdesivir 100 mg/ Sodium Chloride 230 ml @ 460 mls/hr Q24H IV 10/04/21 09:00 10/07/21 09:29 10/04/21 09:56 Justifications for Admission Other Justification MABLE MORALES III DO Oct 04, 2021 11:09
[2021-10-04 15:00] VITALS: BP 127/73
[2021-10-04 19:00] VITALS: BP 119/65
[2021-10-04] MEDS: SIMVASTATIN 40 MG TABLET. PO SCH (21:50)
[2021-10-04 23:07] VITALS: BP 155/82
[2021-10-05 02:43] VITALS: BP 156/77
[2021-10-05 07:00] VITALS: BP 151/93
[2021-10-05] MEDS: CITALOPRAM 20 MG TABLET. PO SCH (08:31)
[2021-10-05] MEDS: ASCORBIC ACID 500 MG TABLET PO SCH (08:31)
[2021-10-05] MEDS: ASPIRIN CHEWABLE 81 MG TABLET. PO SCH (08:31)
[2021-10-05] MEDS: DEXAMETHASONE SOD PHOS 4 MG/ML VIAL IVP SCH (08:31)
[2021-10-05] MEDS: CHOLECALCIFEROL (VITAMIN D3) 1,000 UNIT TABLET PO SCH (08:31)
[2021-10-05] MEDS: LEVOTHYROXINE 100 MCG TABLET PO SCH (08:31)
[2021-10-05] MEDS: LISINOPRIL 20 MG TABLET PO SCH (08:32)
[2021-10-05] MEDS: REMDESIVIR 100mg in NORMAL SALINE 250ML X 4 DAYS IV SCH (08:32)
[2021-10-05] MEDS: ENOXAPARIN 40 MG/0.4 ML SYRINGE. SQ SCH (08:33)
[2021-10-05 08:41] LABS: ALBUMIN 2.3 g/dL (3.4-5.0); ALBUMIN/GLOBULIN RATIO 0.5 (1.0-1.7); CALCIUM 7.9 mg/dL (8.5-10.1); CREATININE 0.9 mg/dL (0.7-1.3); GFR 85.8; POTASSIUM 3.9 mmol/L (3.5-5.1); TOTAL BILIRUBIN 0.4 mg/dL (0.2-1.0); TOTAL PROTEIN 6.7 g/dL (6.4-8.2)
--- NOTE | 2021-10-05 10:58 | PDOC2 ---
RAMON LOZANO TEST INSPECTION ENGINEER 10/05/21 1058: CARDIAC CONSULT DATE OF CONSULT Date of Consult DATE: 10/05/21 TIME: 10:55 REASON FOR CONSULT Reason for Consult: bradycardia REFERRING PHYSICIAN Referring Physician: Yris SOURCE Source: Chart review, Patient HISTORY OF PRESENT ILLNESS HISTORY OF PRESENT ILLNESS This is a pleasant 61 yo male admitted for complains of shortness of breath. He just came back driving from [place] last week to visit family. He came back and has not been feeling that good. [place] weak as well to a point that he could not get up last Saturday and his finally called the EMS. He has been having insomnia and and have been SOA mainly with exertion. No chest pain, fever. He has been having some dizzy episodes but not consistent and has not any syncopal spells. He takes 1 BP med bu no meds that would slow down his HR. Denies any recent falls, injury, MVA and no hx of VTE, CAD, CVA or any VTE. He was diagnosed with covid-19 as an outpt on 09/27/2021. Denies any leg swelling and no recent surgery. PAST MEDICAL HISTORY Cardiovascular: HTN, Hyperlipidemia Pulmonary: No pertinent hx CENTRAL NERVOUS SYSTEM: Other (No pertinent hisory) GI: No pertinent hx Heme/Onc: No pertinent hx Hepatobiliary: No pertinent hx Psych: No pertinent hx Musculoskeletal: Osteoarthritis Rheumatologic: No pertinent hx Infectious disease: No pertinent hx ENT: No pertinent hx Renal/: No pertinent hx Endocrine: Hypothyroidism PAST SURGICAL HISTORY Past Surgical History: No pertinent history FAMILY HISTORY Family History: Coronary Artery Disease (father), Hypertension SOCIAL HISTORY Smoke: No ALCOHOL: none Drugs: None Lives: with Family ALLERGIES ALLERGIES: Coded Allergies: No Known Drug Allergies (Unverified , 10/01/21) ROS Review of System 14 point ROS evaluated with pertinent positives noted per HPI PHYSICAL EXAM General: Alert, Oriented X3, Cooperative, No acute distress HEENT: Mucous membr. moist/pink Lungs: Other (diminished bases) Heart: Regular rate (SR), Normal S1, Normal S2, No murmurs Abdomen: Soft, No tenderness Extremities: No cyanosis, No edema Skin: No breakdown, No significant lesion Neuro: Normal speech, Sensation intact Psych/Mental Status: Mental status NL, Mood NL MUSCULOSKELETAL: Osteoarthritic changes both hands VITALS/I&O VITALS/I&O: Vital Signs Date Time Temp Pulse Resp B/P (MAP) Pulse Ox O2 Delivery O2 Flow Rate FiO2 10/05/21 08:32 90 157/101 10/05/21 08:00 Nasal Cannula 4.0 10/05/21 07:00 97.5 18 96 97.5 I & O 10/04/21 10/04/21 10/05/21 15:00 23:00 07:00 Output Total 400 ml 450 ml Balance -400 ml -450 ml LABS Lab: Laboratory Tests Test 10/05/21 07:45 Sodium Level 139 mmol/L (136-145) Potassium Level 3.9 mmol/L (3.5-5.1) Chloride Level 109 mmol/L (98-107) H Carbon Dioxide Level 26 mmol/L (21-32) Anion Gap 4 (6-14) L Blood Urea Nitrogen 16 mg/dL (8-26) Creatinine 0.9 mg/dL (0.7-1.3) Estimated GFR (Cockcroft-Gault) 85.8 BUN/Creatinine Ratio 18 (6-20) Glucose Level 73 mg/dL (70-99) Calcium Level 7.9 mg/dL (8.5-10.1) L Total Bilirubin 0.4 mg/dL (0.2-1.0) Aspartate Amino Transferase (AST) 35 U/L (15-37) Alanine Aminotransferase (ALT) 46 U/L (16-63) Alkaline Phosphatase 39 U/L (46-116) L Total Protein 6.7 g/dL (6.4-8.2) Albumin 2.3 g/dL (3.4-5.0) L Albumin/Globulin Ratio 0.5 (1.0-1.7) L Laboratory Tests 10/05/21 07:45 ASSESSMENT/PLAN ASSESSMENT/PLAN 1. Covid-19 pneumonia 2. Sinus bradycardia with 2 episodes of 4 sec pause: no associated syncope. Lowest in the 30s presently HR 70s 3. HTN: mildly labile 4. HLP 5. Obesity 6. Hypothyroidism: TSH on goal on replacement. Recommendations 1. No AV lucila blocking agents. Continue lisinopril 2. Monitor rhythm and will reevaluate for any need of PPM. Will obtain TTE 3. Continue covid-19 treatment 4. Obtain DDIMER 5. Consider outpt PRERNA w/u MAYE ALLEN MD 10/05/21 1711: CARDIAC CONSULT ASSESSMENT/PLAN ASSESSMENT/PLAN Patient seen and evaluated. I agree with our nurse practitioners assessment and plan. Covid-19 pneumonia. Continuing on present treatment. Sinus bradycardia with 2 episodes of 4 sec pause: no associated syncope. Lowest in the 30s presently HR 70s. No AV lucila blocking agents. Check echo. Continue on telemetry and consider outpatient monitor. HTN: mildly labile HLP Hypothyroidism: TSH on goal on replacement. RAMON LOZANO APRN Oct 05, 2021 10:58 MAYE ALLEN MD Oct 05, 2021 17:11
[2021-10-05 11:00] VITALS: BP_SYST 110; BP_SYST 131; BP_DIAS 54; BP_DIAS 69
--- NOTE | 2021-10-05 12:18 | PDOC ---
[employer] PROGRESS NOTE Date of Service DOS: DATE: 10/05/21 TIME: 12:11 Chief Complaint Chief Complaint Acute respiratory failure with hypoxia - due to COVID 19. Will treat with steroids, supportive care, remdesivir COVID 19 - decadron, supportive care, O2 HTN - will reconcile home medications Hypothyroidism - cont home levothyroxine HLD - cont statin Hypokalemia - likely nutritional, will replace, follow mag Bradycardia - while sleeping, HR increases upon awakening. Will monitor History of Present Illness History of Present Illness 10/05/2021 Patient seen and examined Chart reviewed Discussed with RN Patient is on Day e of Remdesivir. Patient feeling well, but not as good as yesterday Patient resting comfortably in bed in no apparent distress 10/04/2021 Patient seen and examined. Patient is on Day 1 of Remdesivir. Chart Reviewed Discussed with RN 10/03/2021 No acute events night. Patient seen examined bedside. Patient saturating 94% on 4 L nasal cannula. Not dyspneic upon my encounter. Patient's chart, labs, images were reviewed and discussed with RN 61 year old male with history of HTN, HLD, and hypothyroidism who presents via EMS c/o worsening shortness of breath. He notes positive Covid test on 09/26/2021 at [facility] who presents with shortness of breath and hypoxia, notably per EMS with O2 saturations 86% on arrival. States that he has had symptoms for 3 weeks that have progressively worsened. Reportedly did not require oxygen when seen in the ED on 09/26/21 and was discharged home with recommendation for supportive care with NSAIDs Denies chest pain, lower extremity edema. Has been coughing frequently. Loss of appetite. 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 Does not drink, smoke or take illicit drugs. Labs with WBC 6.1, Hb 13.5, platelets 349, NA 139, K3.1, BUN 15, CR 1.2, glucose 95, calcium 8, magnesium 2.1, bilirubin 0.9, AST 37, ALT 37, alk phos 39, albumin 2.6 Chest radiograph with bilateral infiltrates EKG sinus rhythm at 77 bpm normal axis and intervals no ST depressions or TWI. Admitted for further care Vitals/I&O Vitals/I&O: Vital Signs Date Time Temp Pulse Resp B/P (MAP) Pulse Ox O2 Delivery O2 Flow Rate FiO2 10/05/21 11:00 98.1 57 18 131/69 (89) 94 Room Air 98.1 10/05/21 08:00 4.0 I & O 10/04/21 10/04/21 10/05/21 15:00 23:00 07:00 Output Total 400 ml 450 ml Balance -400 ml -450 ml Physical Exam General: Alert, Oriented X3, Cooperative, moderate distress Heart: Regular rate Abdomen: Normal bowel sounds, Soft, No tenderness, No hepatosplenomegaly, No masses Extremities: No clubbing, No cyanosis, No edema, Normal pulses, No tenderness/swelling Skin: No rashes, No breakdown, No significant lesion Labs Labs: Laboratory Tests Test 10/05/21 07:45 Sodium Level 139 mmol/L (136-145) Potassium Level 3.9 mmol/L (3.5-5.1) Chloride Level 109 mmol/L (98-107) Carbon Dioxide Level 26 mmol/L (21-32) Anion Gap 4 (6-14) Blood Urea Nitrogen 16 mg/dL (8-26) Creatinine 0.9 mg/dL (0.7-1.3) Estimated GFR (Cockcroft-Gault) 85.8 BUN/Creatinine Ratio 18 (6-20) Glucose Level 73 mg/dL (70-99) Calcium Level 7.9 mg/dL (8.5-10.1) Total Bilirubin 0.4 mg/dL (0.2-1.0) Aspartate Amino Transf (AST/SGOT) 35 U/L (15-37) Alanine Aminotransferase (ALT/SGPT) 46 U/L (16-63) Alkaline Phosphatase 39 U/L (46-116) Total Protein 6.7 g/dL (6.4-8.2) Albumin 2.3 g/dL (3.4-5.0) Albumin/Globulin Ratio 0.5 (1.0-1.7) Assessment and Plan Assessmemt and Plan Problems Medical Problems: (1) COVID-19 Status: Acute (2) Respiratory failure with hypoxia Status: Acute Assessment: Acute respiratory failure with hypoxia - due to COVID 19. Will treat with ster oids, supportive care, remdesivir, doxycycline COVID 19 - decadron, supportive care, O2 HTN - will reconcile home medications Hypothyroidism - cont home levothyroxine HLD - cont statin Hypokalemia - likely nutritional, will replace, follow mag Bradycardia - while sleeping, HR increases upon awakening. Will monitor Plan: Continue covid protocol: Remdesivir, steroids, multivitamins, aspirin, lovenox Doxycycline 100mg BID x 7 days Home Meds DVT prophylaxis Full code Encourage PO intake Comment Review of Relevant I have reviewed the following items michelle (where applicable) has been applied. Justifications for Admission Other Justification MABLE MORALES III DO Oct 05, 2021 12:18
[2021-10-05] MEDS: DOXYCYCLINE HYCLATE 100 MG TABLET PO SCH ×2 (12:32→19:49)
--- NOTE | 2021-10-05 14:31 | NUR ---
SW following. Discussed with RN, pt reporting he has insurance, provided insurance card to RN. real estate transaction manager send to registration to have this verified and applied if valid. LEWIS will continue to follow.
[2021-10-05 15:00] VITALS: BP 152/82
--- NOTE | 2021-10-05 16:49 | CARD ---
MR#: [id number] Date of Study: 10/05/2021 Ordering Physician: RAMON LOZANO, Referring Physician: Ravindra TREVIZO: Keon Strickland [facility] APPROVED REPORT EXAM: LIMITED Two-dimensional and M-mode echocardiogram with Doppler and color Doppler. Other Information Quality : FairHR: 48bpm Rhythm : Bradycardia INDICATION Bradycardia Covid (+) patient. RISK FACTORS Hypertension Obesity Hyperlipidemia 2D DIMENSIONS Left Atrium(2D)4.1 (1.6-4.0cm)IVSd1.1 (0.7-1.1cm) Aortic Root(2D)3.5 (2.0-3.7cm)LVDd5.8 (3.9-5.9cm) PWd1.1 (0.7-1.1cm)LVDs3.8 (2.5-4.0cm) FS (%) 34.6 %SV104.0 ml LVEF(%)63.0 (>50%) Tricuspid Valve TR P. [id number] Peak Gr.26mmHg LEFT VENTRICLE The left ventricle is normal size. There is normal left ventricular wall thickness. The left ventricu lar systolic function is normal. The ejection fraction is estimated at 60-65%. There is normal LV seg mental wall motion. Diastolic function not assessed. No left ventricle thrombus noted on this study. There is no ventricular septal defect visualized. There is no left ventricular aneurysm. There is no mass noted in the left ventricle. RIGHT VENTRICLE The right ventricle is normal size. There is normal right ventricular wall thickness. The right ventr icular systolic function is normal. ATRIA The left atrium size is normal. The right atrium size is normal. The interatrial septum is intact wit h no evidence for an atrial septal defect or patent foramen ovale as noted on 2-D or Doppler imaging. AORTIC VALVE The aortic valve is normal in structure and function. The aortic valve is trileaflet. Doppler and Col or Flow revealed no significant aortic regurgitation. There is no significant aortic valvular stenosi s. There is no aortic valvular vegetation. MITRAL VALVE The mitral valve is normal in structure and function. There is no evidence of mitral valve prolapse. There is no mitral valve stenosis. Doppler and Color-flow revealed trace to mild mitral regurgitation . TRICUSPID VALVE The tricuspid valve is normal in structure and function. Doppler and Color Flow revealed mild tricusp id regurgitation. The PA pressure was estimated at 34 mmHg. There is no tricuspid valve prolapse or v egetation. There is no tricuspid valve stenosis. PULMONIC VALVE The pulmonary valve is normal in structure and function. Doppler and Color Flow revealed no pulmonic valvular regurgitation. There is no pulmonic valvular stenosis. GREAT VESSELS The aortic root is normal in size. The ascending aorta is normal in size. The pulmonary artery is nor mal. The IVC is normal in size and collapses >50% with inspiration. PERICARDIAL EFFUSION There is no pleural effusion. There is no evidence of significant pericardial effusion. Critical Notification Critical Value: No <Conclusion> The left ventricular systolic function is normal. The ejection fraction is estimated at 60-65%. There is normal LV segmental wall motion. Trace to mild mitral regurgitation. Mild tricuspid regurgitation. The PA pressure was estimated at 34 mmHg. There is no evidence of significant pericardial effusion. Signed by : aBri Ch, Electronically Approved : 10/05/2021 16:48:56
[2021-10-05 19:00] VITALS: BP 132/75
[2021-10-05] MEDS: ZOLPIDEM 5 MG TABLET. PO PRN (19:48)
[2021-10-05] MEDS: SIMVASTATIN 40 MG TABLET. PO SCH (19:49)
[2021-10-06 03:04] VITALS: BP 140/72
[2021-10-06 07:00] VITALS: BP 130/79
[2021-10-06 07:37] LABS: BASO % 0 % (0-3); EOS % 0 % (0-3); HEMATOCRIT 36.9 % (39.0-53.0); HEMOGLOBIN 12.6 g/dL (13.0-17.5); LYMPH # 1.2 x10^3/uL (1.0-4.8); LYMPH % 15 % (24-48); MEAN CORPUSCULAR HEMOGLOBIN 31 pg (25-35); MEAN CORPUSCULAR HGB CONC 34 g/dL (31-37); MEAN CORPUSCULAR VOLUME 92 fL (79-100); MONO # 0.9 x10^3/uL (0.0-1.1); MONO % 11 % (0-9); NEUT # 5.8 x10^3/uL (1.8-7.7); NEUT % 73 % (31-73); PLATELET COUNT 423 x10^3/uL (140-400); RED BLOOD COUNT 4.02 x10^6/uL (4.30-5.70)
[2021-10-06] MEDS: ASCORBIC ACID 500 MG TABLET PO SCH (08:47)
[2021-10-06] MEDS: LEVOTHYROXINE 100 MCG TABLET PO SCH (08:47)
[2021-10-06] MEDS: ENOXAPARIN 40 MG/0.4 ML SYRINGE. SQ SCH (08:47)
[2021-10-06] MEDS: CHOLECALCIFEROL (VITAMIN D3) 1,000 UNIT TABLET PO SCH (08:47)
[2021-10-06] MEDS: DOXYCYCLINE HYCLATE 100 MG TABLET PO SCH ×2 (08:47→21:59)
[2021-10-06] MEDS: ASPIRIN CHEWABLE 81 MG TABLET. PO SCH (08:47)
[2021-10-06] MEDS: REMDESIVIR 100mg in NORMAL SALINE 250ML X 4 DAYS IV SCH (08:48)
[2021-10-06] MEDS: LISINOPRIL 20 MG TABLET PO SCH (08:48)
[2021-10-06] MEDS: CITALOPRAM 20 MG TABLET. PO SCH (08:48)
[2021-10-06] MEDS: DEXAMETHASONE SOD PHOS 4 MG/ML VIAL IVP SCH (08:49)
--- NOTE | 2021-10-06 09:52 | PDOC ---
[employer] PROGRESS NOTE Date of Service DOS: DATE: 10/06/21 TIME: 09:49 Chief Complaint Chief Complaint Acute respiratory failure with hypoxia - due to COVID 19. Will treat with steroids, supportive care, remdesivir COVID 19 - decadron, supportive care, O2 HTN - will reconcile home medications Hypothyroidism - cont home levothyroxine HLD - cont statin Hypokalemia - likely nutritional, will replace, follow mag Bradycardia - while sleeping, HR increases upon awakening. Will monitor History of Present Illness History of Present Illness 10/06/21 Patient seen and examined Chart reviewed Discussed with RN Patient had first dose of Remdesivir on 10/03/21 Patient feeling better today and is hopeful to discharge soon 10/05/2021 Patient seen and examined Chart reviewed Discussed with RN Patient feeling well, but not as good as yesterday Patient resting comfortably in bed in no apparent distress 10/04/2021 Patient seen and examined. Chart Reviewed Discussed with RN 10/03/2021 No acute events night. Patient seen examined bedside. Patient saturating 94% on 4 L nasal cannula. Not dyspneic upon my encounter. Patient's chart, labs, images were reviewed and discussed with RN 61 year old male with history of HTN, HLD, and hypothyroidism who presents via EMS c/o worsening shortness of breath. He notes positive Covid test on 09/26/2021 at [facility] who presents with shortness of breath and hypoxia, notably per EMS with O2 saturations 86% on arrival. States that he has had symptoms for 3 weeks that have progressively worsened. Reportedly did not require oxygen when seen in the ED on 09/26/21 and was discharged home with recommendation for supportive care with NSAIDs Denies chest pain, lower extremity edema. Has been coughing frequently. Loss of appetite. 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 Does not drink, smoke or take illicit drugs. Labs with WBC 6.1, Hb 13.5, platelets 349, NA 139, K3.1, BUN 15, CR 1.2, glucose 95, calcium 8, magnesium 2.1, bilirubin 0.9, AST 37, ALT 37, alk phos 39, albumin 2.6 Chest radiograph with bilateral infiltrates EKG sinus rhythm at 77 bpm normal axis and intervals no ST depressions or TWI. Admitted for further care Vitals/I&O Vitals/I&O: Vital Signs Date Time Temp Pulse Resp B/P (MAP) Pulse Ox O2 Delivery O2 Flow Rate FiO2 10/06/21 08:48 49 133/82 10/06/21 07:00 97.5 18 95 Room Air 97.5 10/05/21 19:22 4.0 I & O 10/05/21 10/05/21 10/06/21 15:00 23:00 07:00 Intake Total 300 ml Output Total 200 ml 200 ml Balance -200 ml 300 ml -200 ml Physical Exam General: Alert, Oriented X3, Cooperative, No acute distress Heart: Regular rate (SR), Normal S1, Normal S2, No murmurs Abdomen: Soft, No tenderness Extremities: No cyanosis, No edema Skin: No breakdown, No significant lesion Labs Labs: Laboratory Tests Test 10/05/21 17:17 10/06/21 06:25 D-Dimer (Ana) 1.08 ug/mlFEU (0.00-0.50) White Blood Count 8.0 x10^3/uL (4.0-11.0) Red Blood Count 4.02 x10^6/uL (4.30-5.70) Hemoglobin 12.6 g/dL (13.0-17.5) Hematocrit 36.9 % (39.0-53.0) Mean Corpuscular Volume 92 fL (79-100) Mean Corpuscular Hemoglobin 31 pg (25-35) Mean Corpuscular Hemoglobin Concent 34 g/dL (31-37) Red Cell Distribution Width 14.0 % (11.5-14.5) Platelet Count 423 x10^3/uL (140-400) Neutrophils (%) (Auto) 73 % (31-73) Lymphocytes (%) (Auto) 15 % (24-48) Monocytes (%) (Auto) 11 % (0-9) Eosinophils (%) (Auto) 0 % (0-3) Basophils (%) (Auto) 0 % (0-3) Neutrophils # (Auto) 5.8 x10^3/uL (1.8-7.7) Lymphocytes # (Auto) 1.2 x10^3/uL (1.0-4.8) Monocytes # (Auto) 0.9 x10^3/uL (0.0-1.1) Eosinophils # (Auto) 0.0 x10^3/uL (0.0-0.7) Basophils # (Auto) 0.0 x10^3/uL (0.0-0.2) Assessment and Plan Assessmemt and Plan Problems Medical Problems: (1) COVID-19 Status: Acute (2) Respiratory failure with hypoxia Status: Acute Assessment: Acute respiratory failure with hypoxia - due to COVID 19. Will treat with steroids, supportive care, remdesivir, doxycycline COVID 19 - decadron, supportive care, O2 HTN - will reconcile home medications Hypothyroidism - cont home levothyroxine HLD - cont statin Hypokalemia - likely nutritional, will replace, follow mag Bradycardia - while sleeping, HR increases upon awakening. Will monitor Plan: Hope to discharge tomorrow Continue covid protocol: Remdesivir, steroids, multivitamins, aspirin, lovenox, Doxycycline Home Meds DVT prophylaxis Full code Encourage PO intake Comment Review of Relevant I have reviewed the following items michelle (where applicable) has been applied. Medications: Current Medications Medications (Trade) Dose Ordered Sig/Maia Route PRN Reason Start Time Stop Time Status Last Admin Dose Admin Doxycycline Hyclate (Vibra-Tab) 100 mg BID PO 10/05/21 13:00 10/06/21 08:47 Justifications for Admission Other Justification MABLE MORALES III DO Oct 06, 2021 09:52
--- NOTE | 2021-10-06 10:23 | NUR ---
SW following. Discussed with RN, pt from home, 4L, regular diet, COVID-19 positive. Pt will need a 6 minute walk prior to discharge. Probable discharge over weekend once Remdesivir treatment finished. SW will continue to follow.
[2021-10-06 11:00] VITALS: BP 152/89
--- NOTE | 2021-10-06 12:50 | PDOC ---
CARDIO Progress Notes Date and Time Date of Service 10/06/2021 Time of Evaluation 1220 Subjective Subjective: No Chest Pain, No Palpitations, No Dizziness, Other (SOA with exertion) Vitals Vitals Vital Signs Date Time Temp Pulse Resp B/P (MAP) Pulse Ox O2 Delivery O2 Flow Rate FiO2 10/06/21 11:00 97.3 58 18 152/89 (110) 95 Room Air 97.3 10/06/21 08:00 4.0 Weight Weight [ ] Input and Output Intake and Output Intake and Output 10/06/21 07:00 Intake Total 300 ml Output Total 400 ml Balance -100 ml Intake Oral 300 ml Output Urine Total 400 ml Laboratory Labs Laboratory Tests Test 10/05/21 17:17 10/06/21 06:25 D-Dimer (Ana) 1.08 ug/mlFEU (0.00-0.50) White Blood Count 8.0 x10^3/uL (4.0-11.0) Red Blood Count 4.02 x10^6/uL (4.30-5.70) Hemoglobin 12.6 g/dL (13.0-17.5) Hematocrit 36.9 % (39.0-53.0) Mean Corpuscular Volume 92 fL (79-100) Mean Corpuscular Hemoglobin 31 pg (25-35) Mean Corpuscular Hemoglobin Concent 34 g/dL (31-37) Red Cell Distribution Width 14.0 % (11.5-14.5) Platelet Count 423 x10^3/uL (140-400) Neutrophils (%) (Auto) 73 % (31-73) Lymphocytes (%) (Auto) 15 % (24-48) Monocytes (%) (Auto) 11 % (0-9) Eosinophils (%) (Auto) 0 % (0-3) Basophils (%) (Auto) 0 % (0-3) Neutrophils # (Auto) 5.8 x10^3/uL (1.8-7.7) Lymphocytes # (Auto) 1.2 x10^3/uL (1.0-4.8) Monocytes # (Auto) 0.9 x10^3/uL (0.0-1.1) Eosinophils # (Auto) 0.0 x10^3/uL (0.0-0.7) Basophils # (Auto) 0.0 x10^3/uL (0.0-0.2) Physical Exam HEENT: Neck Supple W Full Motion Chest: Symmetric LUNGS: Clear to Auscultation Heart: S1S2, RRR (SR/SB), no murmurs Abdomen: Soft N/T Extremities: No Edema, No Calf Tenderness Neurology: alert, oriented, follow commands Assessment Assessment 1. Covid-19 pneumonia: unvaccinated 2. Sinus bradycardia with 2 episodes of 4 sec pause: no associated syncope. Lowest in the 30s, presently 50-60s. EF and WM nml 3. HTN: controlled 4. HLP 5. Obesity 6. Hypothyroidism: TSH on goal on replacement. Recommendations 1. No AV lucila blocking agents. Continue lisinopril 2. Monitor rhythm and will reevaluate for any need of PPM. 3. Continue covid-19 treatment 4. Nocturnal desat study 5. Consider outpt PRERNA w/u 6. Follow up with Dr. Clements on November 16 [id number] Justicifation of Admission Dx: Justifications for Admission: Justification of Admission Dx: Yes RAMON LOZANO APRN Oct 06, 2021 12:50
[2021-10-06 15:00] VITALS: BP 112/59
[2021-10-06 19:12] VITALS: BP 132/68
[2021-10-06] MEDS: ZOLPIDEM 5 MG TABLET. PO PRN (21:59)
[2021-10-06] MEDS: SIMVASTATIN 40 MG TABLET. PO SCH (21:59)
[2021-10-07 04:09] LABS: BASO % 0 % (0-3); EOS % 0 % (0-3); HEMATOCRIT 37.1 % (39.0-53.0); LYMPH % 11 % (24-48); MEAN CORPUSCULAR HEMOGLOBIN 32 pg (25-35); MEAN CORPUSCULAR HGB CONC 35 g/dL (31-37); MEAN CORPUSCULAR VOLUME 92 fL (79-100); MONO # 1.2 x10^3/uL (0.0-1.1); MONO % 13 % (0-9); NEUT # 7.2 x10^3/uL (1.8-7.7); NEUT % 76 % (31-73); PLATELET COUNT 432 x10^3/uL (140-400); RED BLOOD COUNT 4.04 x10^6/uL (4.30-5.70); RED CELL DISTRIBUTION WIDTH 13.6 % (11.5-14.5); WHITE BLOOD COUNT 9.5 x10^3/uL (4.0-11.0)
[2021-10-07 04:18] VITALS: BP 145/77
[2021-10-07 04:30] LABS: CALCIUM 8.2 mg/dL (8.5-10.1); POTASSIUM 3.9 mmol/L (3.5-5.1)
[2021-10-07 07:00] VITALS: BP 129/73
[2021-10-07] MEDS: LEVOTHYROXINE 100 MCG TABLET PO SCH (07:23)
[2021-10-07] MEDS: ENOXAPARIN 40 MG/0.4 ML SYRINGE. SQ SCH (09:05)
[2021-10-07] MEDS: CHOLECALCIFEROL (VITAMIN D3) 1,000 UNIT TABLET PO SCH (09:05)
[2021-10-07] MEDS: DOXYCYCLINE HYCLATE 100 MG TABLET PO SCH ×2 (09:05→20:06)
[2021-10-07] MEDS: ASCORBIC ACID 500 MG TABLET PO SCH (09:05)
[2021-10-07] MEDS: ASPIRIN CHEWABLE 81 MG TABLET. PO SCH (09:05)
[2021-10-07] MEDS: CITALOPRAM 20 MG TABLET. PO SCH (09:05)
[2021-10-07] MEDS: DEXAMETHASONE SOD PHOS 4 MG/ML VIAL IVP SCH (09:06)
[2021-10-07] MEDS: REMDESIVIR 100mg in NORMAL SALINE 250ML X 4 DAYS IV SCH (09:07)
[2021-10-07] MEDS: LISINOPRIL 20 MG TABLET PO SCH (09:10)
[2021-10-07 11:00] VITALS: BP 121/73
--- NOTE | 2021-10-07 11:19 | PDOC ---
[employer] PROGRESS NOTE Date of Service DOS: DATE: 10/07/21 TIME: 11:17 Chief Complaint Chief Complaint Acute respiratory failure with hypoxia - due to COVID 19. Will treat with steroids, supportive care, remdesivir COVID 19 - decadron, supportive care, O2 HTN - will reconcile home medications Hypothyroidism - cont home levothyroxine HLD - cont statin Hypokalemia - likely nutritional, will replace, follow mag Bradycardia - while sleeping, HR increases upon awakening. Will monitor History of Present Illness History of Present Illness 10/07/2019 Patient seen and examined Discussed with RN Chart reviewed He is currently getting his last dose of remdesivir 10/06/21 Patient seen and examined Chart reviewed Discussed with RN Patient had first dose of Remdesivir on 10/03/21 Patient feeling better today and is hopeful to discharge soon 10/05/2021 Patient seen and examined Chart reviewed Discussed with RN Patient feeling well, but not as good as yesterday Patient resting comfortably in bed in no apparent distress 10/04/2021 Patient seen and examined. Chart Reviewed Discussed with RN 10/03/2021 No acute events night. Patient seen examined bedside. Patient saturating 94% on 4 L nasal cannula. Not dyspneic upon my encounter. Patient's chart, labs, images were reviewed and discussed with RN 61 year old male with history of HTN, HLD, and hypothyroidism who presents via EMS c/o worsening shortness of breath. He notes positive Covid test on 09/26/[address] [facility] who presents with shortness of breath and hypoxia, notably per EMS with O2 saturations 86% on arrival. States that he has had symptoms for 3 weeks that have progressively worsened. Reportedly did not require oxygen when seen in the ED on 09/26/21 and was discharged home with recommendation for supportive care with NSAIDs Denies chest pain, lower extremity edema. Has been coughing frequently. Loss of appetite. 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 Does not drink, smoke or take illicit drugs. Labs with WBC 6.1, Hb 13.5, platelets 349, NA 139, K3.1, BUN 15, CR 1.2, glucose 95, calcium 8, magnesium 2.1, bilirubin 0.9, AST 37, ALT 37, alk phos 39, albumin 2.6 Chest radiograph with bilateral infiltrates EKG sinus rhythm at 77 bpm normal axis and intervals no ST depressions or TWI. Admitted for further care Vitals/I&O Vitals/I&O: Vital Signs Date Time Temp Pulse Resp B/P (MAP) Pulse Ox O2 Delivery O2 Flow Rate FiO2 10/07/21 09:10 56 129/73 10/07/21 08:00 Nasal Cannula 3.0 10/07/21 07:00 97.8 16 94 97.8 I & O 10/06/21 10/06/21 10/07/21 15:00 23:00 07:00 Output Total 200 ml 750 ml Balance -200 ml -750 ml Physical Exam General: Alert, Oriented X3, Cooperative, No acute distress Heart: Regular rate (SR), Normal S1, Normal S2, No murmurs Abdomen: Soft, No tenderness Extremities: No cyanosis, No edema Skin: No breakdown, No significant lesion Labs Labs: Laboratory Tests Test 10/07/21 02:45 White Blood Count 9.5 x10^3/uL (4.0-11.0) Red Blood Count 4.04 x10^6/uL (4.30-5.70) Hemoglobin 13.0 g/dL (13.0-17.5) Hematocrit 37.1 % (39.0-53.0) Mean Corpuscular Volume 92 fL (79-100) Mean Corpuscular Hemoglobin 32 pg (25-35) Mean Corpuscular Hemoglobin Concent 35 g/dL (31-37) Red Cell Distribution Width 13.6 % (11.5-14.5) Platelet Count 432 x10^3/uL (140-400) Neutrophils (%) (Auto) 76 % (31-73) Lymphocytes (%) (Auto) 11 % (24-48) Monocytes (%) (Auto) 13 % (0-9) Eosinophils (%) (Auto) 0 % (0-3) Basophils (%) (Auto) 0 % (0-3) Neutrophils # (Auto) 7.2 x10^3/uL (1.8-7.7) Lymphocytes # (Auto) 1.0 x10^3/uL (1.0-4.8) Monocytes # (Auto) 1.2 x10^3/uL (0.0-1.1) Eosinophils # (Auto) 0.0 x10^3/uL (0.0-0.7) Basophils # (Auto) 0.0 x10^3/uL (0.0-0.2) Sodium Level 143 mmol/L (136-145) Potassium Level 3.9 mmol/L (3.5-5.1) Chloride Level 107 mmol/L (98-107) Carbon Dioxide Level 28 mmol/L (21-32) Anion Gap 8 (6-14) Blood Urea Nitrogen 26 mg/dL (8-26) Creatinine 1.0 mg/dL (0.7-1.3) Estimated GFR (Cockcroft-Gault) 76.0 Glucose Level 117 mg/dL (70-99) Calcium Level 8.2 mg/dL (8.5-10.1) Assessment and Plan Assessmemt and Plan Problems Medical Problems: (1) COVID-19 Status: Acute (2) Respiratory failure with hypoxia Status: Acute Acute respiratory failure with hypoxia secondary to COVID-19. HTN Hypothyroidism HLD Hypokalemia Plan: Continue covid protocol: Remdesivir, (day five today) steroids, multivitamins, aspirin, lovenox, Doxycycline Home Meds DVT prophylaxis Full code Encourage PO intake Discharge in a.m. if stable Comment Review of Relevant I have reviewed the following items michelle (where applicable) has been applied. Justifications for Admission Other Justification MABLE MORALES III DO Oct 07, 2021 11:19
[2021-10-07 14:56] VITALS: BP 112/57
--- NOTE | 2021-10-07 16:13 | PDOC ---
PROGRESS NOTES Date of Service DATE: 10/07/21 TIME: 16:11 Subjective Subjective Patient seen and evaluated Objective Objective Vital Signs Date Time Temp Pulse Resp B/P (MAP) Pulse Ox O2 Delivery O2 Flow Rate FiO2 10/07/21 14:56 97.4 72 14 112/57 (75) 93 Nasal Cannula 3.0 97.4 Intake and Output 10/07/21 07:00 Output Total 950 ml Balance -950 ml Output Urine Total 950 ml Physical Exam Physical Exam Visual examination secondary to COVID status. The patient looks and feels better today. Assessment Assessment Problems Medical Problems: (1) COVID-19 Status: Acute (2) Respiratory failure with hypoxia Status: Acute Covid-19 pneumonia: unvaccinated. Continuing present treatment. The patient looks and feels better today. Sinus bradycardia with 2 episodes of 4 sec pause: no associated syncope. Lowest in the 30s, presently 50-60s. EF and WM nml. Stable overnight. Continue to monitor. No AV lucila blocking agents. HTN: controlled HLP Obesity Hypothyroidism: TSH on goal on replacement. Comment Review of Relevant I have reviewed the following items michelle (where applicable) has been applied. Labs Laboratory Tests Test 10/05/21 17:17 10/06/21 06:25 10/07/21 02:45 D-Dimer (Ana) 1.08 ug/mlFEU (0.00-0.50) White Blood Count 8.0 x10^3/uL (4.0-11.0) 9.5 x10^3/uL (4.0-11.0) Red Blood Count 4.02 x10^6/uL (4.30-5.70) 4.04 x10^6/uL (4.30-5.70) Hemoglobin 12.6 g/dL (13.0-17.5) 13.0 g/dL (13.0-17.5) Hematocrit 36.9 % (39.0-53.0) 37.1 % (39.0-53.0) Mean Corpuscular Volume 92 fL (79-100) 92 fL (79-100) Mean Corpuscular Hemoglobin 31 pg (25-35) 32 pg (25-35) Mean Corpuscular Hemoglobin Concent 34 g/dL (31-37) 35 g/dL (31-37) Red Cell Distribution Width 14.0 % (11.5-14.5) 13.6 % (11.5-14.5) Platelet Count 423 x10^3/uL (140-400) 432 x10^3/uL (140-400) Neutrophils (%) (Auto) 73 % (31-73) 76 % (31-73) Lymphocytes (%) (Auto) 15 % (24-48) 11 % (24-48) Monocytes (%) (Auto) 11 % (0-9) 13 % (0-9) Eosinophils (%) (Auto) 0 % (0-3) 0 % (0-3) Basophils (%) (Auto) 0 % (0-3) 0 % (0-3) Neutrophils # (Auto) 5.8 x10^3/uL (1.8-7.7) 7.2 x10^3/uL (1.8-7.7) Lymphocytes # (Auto) 1.2 x10^3/uL (1.0-4.8) 1.0 x10^3/uL (1.0-4.8) Monocytes # (Auto) 0.9 x10^3/uL (0.0-1.1) 1.2 x10^3/uL (0.0-1.1) Eosinophils # (Auto) 0.0 x10^3/uL (0.0-0.7) 0.0 x10^3/uL (0.0-0.7) Basophils # (Auto) 0.0 x10^3/uL (0.0-0.2) 0.0 x10^3/uL (0.0-0.2) Sodium Level 143 mmol/L (136-145) Potassium Level 3.9 mmol/L (3.5-5.1) Chloride Level 107 mmol/L (98-107) Carbon Dioxide Level 28 mmol/L (21-32) Anion Gap 8 (6-14) Blood Urea Nitrogen 26 mg/dL (8-26) Creatinine 1.0 mg/dL (0.7-1.3) Estimated GFR (Cockcroft-Gault) 76.0 Glucose Level 117 mg/dL (70-99) Calcium Level 8.2 mg/dL (8.5-10.1) Laboratory Tests Test 10/07/21 02:45 White Blood Count 9.5 x10^3/uL (4.0-11.0) Red Blood Count 4.04 x10^6/uL (4.30-5.70) Hemoglobin 13.0 g/dL (13.0-17.5) Hematocrit 37.1 % (39.0-53.0) Mean Corpuscular Volume 92 fL (79-100) Mean Corpuscular Hemoglobin 32 pg (25-35) Mean Corpuscular Hemoglobin Concent 35 g/dL (31-37) Red Cell Distribution Width 13.6 % (11.5-14.5) Platelet Count 432 x10^3/uL (140-400) Neutrophils (%) (Auto) 76 % (31-73) Lymphocytes (%) (Auto) 11 % (24-48) Monocytes (%) (Auto) 13 % (0-9) Eosinophils (%) (Auto) 0 % (0-3) Basophils (%) (Auto) 0 % (0-3) Neutrophils # (Auto) 7.2 x10^3/uL (1.8-7.7) Lymphocytes # (Auto) 1.0 x10^3/uL (1.0-4.8) Monocytes # (Auto) 1.2 x10^3/uL (0.0-1.1) Eosinophils # (Auto) 0.0 x10^3/uL (0.0-0.7) Basophils # (Auto) 0.0 x10^3/uL (0.0-0.2) Sodium Level 143 mmol/L (136-145) Potassium Level 3.9 mmol/L (3.5-5.1) Chloride Level 107 mmol/L (98-107) Carbon Dioxide Level 28 mmol/L (21-32) Anion Gap 8 (6-14) Blood Urea Nitrogen 26 mg/dL (8-26) Creatinine 1.0 mg/dL (0.7-1.3) Estimated GFR (Cockcroft-Gault) 76.0 Glucose Level 117 mg/dL (70-99) Calcium Level 8.2 mg/dL (8.5-10.1) Medications Current Medications Dexamethasone Sodium Phosphate (Decadron) 6 mg 1X ONCE IVP Last administered on 10/01/21at 21:23; Start 10/01/21 at 21:00; Stop 10/01/21 at 21:01; Status DC Potassium Chloride (Klor-Con) 40 meq 1X ONCE PO Last administered on 10/01/21at 21:23; Start 10/01/21 at 21:30; Stop 10/01/21 at 21:31; Status DC Acetaminophen (Tylenol) 650 mg PRN Q6HRS PRN PO MILD PAIN / TEMP > 100.3'F; Start 10/02/21 at 07:15 Fentanyl Citrate (Fentanyl 2ml Vial) 25 mcg PRN Q3HRS PRN IVP SEVERE PAIN 7-10; Start 10/02/21 at 07:15 Enoxaparin Sodium (Lovenox 40mg Syringe) 40 mg Q24H SQ Last administered on 10/07/21at 09:05; Start 10/02/21 at 09:00 Guaifenesin (Robitussin Dm) 10 ml PRN Q6HRS PRN PO COUGH; Start 10/02/21 at 07:15 Ketorolac Tromethamine (Toradol 30mg Vial) 30 mg PRN Q6HRS PRN IVP INFLAMMATION; Start 10/02/21 at 07:15 Tramadol HCl (Ultram) 50 mg PRN Q6HRS PRN PO MODERATE-SEVERE PAIN; Start 10/02/21 at 07:15 Ondansetron HCl (Zofran) 4 mg PRN Q4HRS PRN IVP NAUSEA/VOMITING; Start 10/02/21 at 07:15 Dexamethasone Sodium Phosphate (Decadron) 6 mg DAILY IVP Last administered on 10/07/21at 09:06; Start 10/02/21 at 09:00; Stop 10/10/21 at 09:01 Potassium Chloride/Dextrose/ Sod Cl 1,000 ml @ 75 mls/hr [id number] IV Last administered on 10/02/21at 21:58; Start 10/02/21 at 07:45; Stop 10/03/21 at 10:24; Status DC Aspirin (Aspirin Chewable) 81 mg DAILY PO Last administered on 10/07/21at 09:05; Start 10/03/21 at 09:00 Vitamin D (Vitamin D3) 1,000 unit DAILY PO Last administered on 10/07/21at 09:05; Start 10/03/21 at 09:00 Levothyroxine Sodium (Synthroid) 100 mcg DAILY07 PO Last administered on 10/07/21at 07:23; Start 10/03/21 at 07:00 Lisinopril (Prinivil) 40 mg DAILY PO Last administered on 10/07/21at 09:10; Start 10/03/21 at 09:00 Ondansetron HCl (Zofran Odt) 4 mg PRN Q6HRS PRN PO nausea; Start 10/02/21 at 20:15 Simvastatin (Zocor) 40 mg QHS PO Last administered on 10/06/21at 21:59; Start 10/02/21 at 21:00 Ascorbic Acid (Vitamin C) 500 mg DAILY PO Last administered on 10/07/21at 09:05; Start 10/03/21 at 09:00 Citalopram Hydrobromide (CeleXA) 40 mg DAILY PO Last administered on 10/07/21at 09:05; Start 10/03/21 at 09:00 Zolpidem Tartrate (Ambien) 5 mg PRN QHS PRN PO INSOMNIA, MAY REPEAT IN 1HR Last administered on 10/06/21at 21:59; Start 10/03/21 at 00:00 Remdesivir 200 mg/ Sodium Chloride 210 ml @ 210 mls/hr 1X ONCE IV Last administered on 10/03/21at 09:50; Start 10/03/21 at 09:00; Stop 10/03/21 at 09:59; Status DC Remdesivir 100 mg/ Sodium Chloride 230 ml @ 460 mls/hr Q24H IV Last administered on 10/07/21at 09:07; Start 10/04/21 at 09:00; Stop 10/07/21 at 09:29; Status DC Doxycycline Hyclate (Vibra-Tab) 100 mg BID PO Last administered on 10/07/21at 09:05; Start 10/05/21 at 13:00; Stop 10/11/21 at 21:01 Active Scripts Active Reported Ondansetron Odt (Ondansetron) 4 Mg Tab.rapdis 1 Tab PO PRN Q6-8HRS Vitamin C (Ascorbic Acid) 100 Mg Tablet 1 Tab PO DAILY 30 Days Vitamin D3 (Vitamin D) 25 Mcg Tablet 25 Mcg PO DAILY 1,000 UNITS = 25 MCG Aspirin 81 Mg Tab.chew 1 Tab PO DAILY Lisinopril 40 Mg Tablet 1 Tab PO DAILY Synthroid (Levothyroxine Sodium) 100 Mcg Tablet 1 Tab PO DAILY Citalopram Hbr (Citalopram Hydrobromide) 40 Mg Tablet 1 Tab PO DAILY Simvastatin 40 Mg Tablet 1 Tab PO QHS Vitals/I & O Vital Sign - Last 24 Hours 10/06/21 10/06/21 10/07/21 10/07/21 19:12 19:12 04:18 07:00 Temp 98.4 97.5 97.8 98.4 97.5 97.8 Pulse 60 45 56 Resp 24 16 16 B/P (MAP) 132/68 (89) 145/77 (99) 129/73 (91) Pulse Ox 94 97 94 O2 Delivery Nasal Cannula Nasal Cannula Nasal Cannula Nasal Cannula O2 Flow Rate 4.0 4.0 4.0 3.0 10/07/21 10/07/21 10/07/21 10/07/21 08:00 09:10 11:00 14:56 Temp 97.8 97.4 97.8 97.4 Pulse 56 80 72 Resp 16 14 B/P (MAP) 129/73 121/73 (89) 112/57 (75) Pulse Ox 92 93 O2 Delivery Nasal Cannula Nasal Cannula Nasal Cannula O2 Flow Rate 3.0 3.0 3.0 Intake and Output 10/06/21 10/06/21 10/07/21 15:00 23:00 07:00 Output Total 200 ml 750 ml Balance -200 ml -750 ml Justifications for Admission Other Justification MAYE ALLEN MD Oct 07, 2021 16:13
[2021-10-07 19:00] VITALS: BP 112/66
[2021-10-07] MEDS: ZOLPIDEM 5 MG TABLET. PO PRN (20:06)
[2021-10-07] MEDS: SIMVASTATIN 40 MG TABLET. PO SCH (20:06)
[2021-10-07] MEDS ORDERED: LOPERAMIDE 2 MG CAPSULE PO PRN ×2 (20:30→20:45)
[2021-10-08 03:00] VITALS: BP 115/72
[2021-10-08] MEDS: LEVOTHYROXINE 100 MCG TABLET PO SCH (06:01)
[2021-10-08 07:00] VITALS: BP 142/83
[2021-10-08 08:04] LABS: BASO % 0 % (0-3); EOS % 0 % (0-3); HEMATOCRIT 40.3 % (39.0-53.0); HEMOGLOBIN 13.8 g/dL (13.0-17.5); LYMPH # 1.3 x10^3/uL (1.0-4.8); LYMPH % 12 % (24-48); MEAN CORPUSCULAR HEMOGLOBIN 32 pg (25-35); MEAN CORPUSCULAR HGB CONC 34 g/dL (31-37); MEAN CORPUSCULAR VOLUME 92 fL (79-100); MONO # 0.9 x10^3/uL (0.0-1.1); MONO % 9 % (0-9); NEUT # 8.3 x10^3/uL (1.8-7.7); NEUT % 79 % (31-73); PLATELET COUNT 476 x10^3/uL (140-400); RED BLOOD COUNT 4.37 x10^6/uL (4.30-5.70); RED CELL DISTRIBUTION WIDTH 13.9 % (11.5-14.5); WHITE BLOOD COUNT 10.5 x10^3/uL (4.0-11.0)
[2021-10-08 08:16] LABS: CALCIUM 8.4 mg/dL (8.5-10.1); CREATININE 0.9 mg/dL (0.7-1.3); GFR 85.8; POTASSIUM 4.8 mmol/L (3.5-5.1)
[2021-10-08] MEDS: DEXAMETHASONE SOD PHOS 4 MG/ML VIAL IVP SCH (09:03)
[2021-10-08] MEDS: CITALOPRAM 20 MG TABLET. PO SCH (09:04)
[2021-10-08] MEDS: ENOXAPARIN 40 MG/0.4 ML SYRINGE. SQ SCH (09:04)
[2021-10-08] MEDS: CHOLECALCIFEROL (VITAMIN D3) 1,000 UNIT TABLET PO SCH (09:04)
[2021-10-08] MEDS: ASCORBIC ACID 500 MG TABLET PO SCH (09:05)
[2021-10-08] MEDS: DOXYCYCLINE HYCLATE 100 MG TABLET PO SCH (09:05)
[2021-10-08] MEDS: ASPIRIN CHEWABLE 81 MG TABLET. PO SCH (09:05)
[2021-10-08] MEDS: LISINOPRIL 20 MG TABLET PO SCH (09:05)
[2021-10-08 10:42] VITALS: BP 123/67
--- NOTE | 2021-10-08 11:57 | PDOC ---
[employer] PROGRESS NOTE Date of Service DOS: DATE: 10/08/21 TIME: 11:51 Chief Complaint Chief Complaint Acute respiratory failure with hypoxia - due to COVID 19. Will treat with steroids, supportive care, remdesivir COVID 19 - decadron, supportive care, O2 HTN - will reconcile home medications Hypothyroidism - cont home levothyroxine HLD - cont statin Hypokalemia - likely nutritional, will replace, follow mag Bradycardia - while sleeping, HR increases upon awakening. Will monitor History of Present Illness History of Present Illness 10/08/21 Patient seen and examined Patient feels well enough to go home. Completed remdesivir Discussed with RN Chart reviewed 10/07/2019 Patient seen and examined Discussed with RN Chart reviewed He is currently getting his last dose of remdesivir 10/06/21 Patient seen and examined Chart reviewed Discussed with RN Patient had first dose of Remdesivir on 10/03/21 Patient feeling better today and is hopeful to discharge soon 10/05/2021 Patient seen and examined Chart reviewed Discussed with RN Patient feeling well, but not as good as yesterday Patient resting comfortably in bed in no apparent distress 10/04/2021 Patient seen and examined. Chart Reviewed Discussed with RN 10/03/2021 No acute events night. Patient seen examined bedside. Patient saturating 94% on 4 L nasal cannula. Not dyspneic upon my encounter. Patient's chart, labs, images were reviewed and discussed with RN 61 year old male with history of HTN, HLD, and hypothyroidism who presents via EMS c/o worsening shortness of breath. He notes positive Covid test on 09/26/[address] [facility] who presents with shortness of breath and hypoxia, notably per EMS with O2 saturations 86% on arrival. States that he has had symptoms for 3 weeks that have progressively worsened. Reportedly did not require oxygen when seen in the ED on 09/26/21 and was discharged home with recommendation for supportive care with NSAIDs Denies chest pain, lower extremity edema. Has been coughing frequently. Loss of appetite. 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 Does not drink, smoke or take illicit drugs. Labs with WBC 6.1, Hb 13.5, platelets 349, NA 139, K3.1, BUN 15, CR 1.2, glucose 95, calcium 8, magnesium 2.1, bilirubin 0.9, AST 37, ALT 37, alk phos 39, albumin 2.6 Chest radiograph with bilateral infiltrates EKG sinus rhythm at 77 bpm normal axis and intervals no ST depressions or TWI. Admitted for further care Vitals/I&O Vitals/I&O: Vital Signs Date Time Temp Pulse Resp B/P (MAP) Pulse Ox O2 Delivery O2 Flow Rate FiO2 10/08/21 10:42 97.6 62 18 123/67 (85) 93 Nasal Cannula 3.0 97.6 I & O 10/07/21 10/07/21 10/08/21 15:00 23:00 07:00 Intake Total 500 ml Output Total 850 ml 150 ml 350 ml Balance -850 ml 350 ml -350 ml Physical Exam General: Alert, Oriented X3, Cooperative, No acute distress Heart: Regular rate (SR), Normal S1, Normal S2, No murmurs Abdomen: Soft, No tenderness Extremities: No cyanosis, No edema Skin: No breakdown, No significant lesion Labs Labs: Laboratory Tests Test 10/08/21 06:20 White Blood Count 10.5 x10^3/uL (4.0-11.0) Red Blood Count 4.37 x10^6/uL (4.30-5.70) Hemoglobin 13.8 g/dL (13.0-17.5) Hematocrit 40.3 % (39.0-53.0) Mean Corpuscular Volume 92 fL (79-100) Mean Corpuscular Hemoglobin 32 pg (25-35) Mean Corpuscular Hemoglobin Concent 34 g/dL (31-37) Red Cell Distribution Width 13.9 % (11.5-14.5) Platelet Count 476 x10^3/uL (140-400) Neutrophils (%) (Auto) 79 % (31-73) Lymphocytes (%) (Auto) 12 % (24-48) Monocytes (%) (Auto) 9 % (0-9) Eosinophils (%) (Auto) 0 % (0-3) Basophils (%) (Auto) 0 % (0-3) Neutrophils # (Auto) 8.3 x10^3/uL (1.8-7.7) Lymphocytes # (Auto) 1.3 x10^3/uL (1.0-4.8) Monocytes # (Auto) 0.9 x10^3/uL (0.0-1.1) Eosinophils # (Auto) 0.0 x10^3/uL (0.0-0.7) Basophils # (Auto) 0.0 x10^3/uL (0.0-0.2) Sodium Level 142 mmol/L (136-145) Potassium Level 4.8 mmol/L (3.5-5.1) Chloride Level 104 mmol/L (98-107) Carbon Dioxide Level 31 mmol/L (21-32) Anion Gap 7 (6-14) Blood Urea Nitrogen 22 mg/dL (8-26) Creatinine 0.9 mg/dL (0.7-1.3) Estimated GFR (Cockcroft-Gault) 85.8 Glucose Level 80 mg/dL (70-99) Calcium Level 8.4 mg/dL (8.5-10.1) Assessment and Plan Assessmemt and Plan Assessment: Acute respiratory failure with hypoxia - due to COVID 19. Will treat with steroids, supportive care, remdesivir COVID 19 - decadron, supportive care, O2 HTN - will reconcile home medications Hypothyroidism - cont home levothyroxine HLD - cont statin Hypokalemia - likely nutritional, will replace, follow mag Bradycardia - while sleeping, HR increases upon awakening. Will monitor Plan: Patient complete Remdesivir regimen Patient will need O2 at home Home meds DVT prophylaxis Full code Discharge to home Comment Review of Relevant I have reviewed the following items michelle (where applicable) has been applied. Medications: Current Medications Medications (Trade) Dose Ordered Sig/Maia Route PRN Reason Start Time Stop Time Status Last Admin Dose Admin Loperamide HCl (Imodium) 2 mg PRN Q15MIN PRN PO DIARRHEA 10/07/21 20:45 10/07/21 20:46 Justifications for Admission Other Justification MABLE MORALES III DO Oct 08, 2021 11:57
[2021-10-08 14:47] VITALS: BP 133/69
--- NOTE | 2021-10-08 15:08 | PDOC ---
PROGRESS NOTES Date of Service DATE: 10/08/21 TIME: 15:06 Subjective Subjective Patient seen and evaluated. Objective Objective Vital Signs Date Time Temp Pulse Resp B/P (MAP) Pulse Ox O2 Delivery O2 Flow Rate FiO2 10/08/21 14:47 97.8 65 18 133/69 (90) 92 Nasal Cannula 3.0 97.8 Intake and Output 10/08/21 07:00 Intake Total 500 ml Output Total 1350 ml Balance -850 ml Intake Oral 500 ml Output Urine Total 1350 ml Physical Exam Physical Exam Visual examination secondary to COVID status. Assessment Assessment Problems Medical Problems: (1) COVID-19 Status: Acute (2) Respiratory failure with hypoxia Status: Acute Covid-19 pneumonia: unvaccinated. Improving. Continuing present treatment. Probably home later today. Sinus bradycardia with 2 episodes of 4 sec pause: no associated syncope. Lowest in the 30s, presently rate in the 60s. Ejection fraction normal. No AV lucila blocking agents. If the patient is discharged we will arrange an outpatient monitor. HTN: controlled HLP Obesity Hypothyroidism: TSH at goal on replacement. Comment Review of Relevant I have reviewed the following items michelle (where applicable) has been applied. Labs Laboratory Tests Test 10/07/21 02:45 10/08/21 06:20 White Blood Count 9.5 x10^3/uL (4.0-11.0) 10.5 x10^3/uL (4.0-11.0) Red Blood Count 4.04 x10^6/uL (4.30-5.70) 4.37 x10^6/uL (4.30-5.70) Hemoglobin 13.0 g/dL (13.0-17.5) 13.8 g/dL (13.0-17.5) Hematocrit 37.1 % (39.0-53.0) 40.3 % (39.0-53.0) Mean Corpuscular Volume 92 fL (79-100) 92 fL (79-100) Mean Corpuscular Hemoglobin 32 pg (25-35) 32 pg (25-35) Mean Corpuscular Hemoglobin Concent 35 g/dL (31-37) 34 g/dL (31-37) Red Cell Distribution Width 13.6 % (11.5-14.5) 13.9 % (11.5-14.5) Platelet Count 432 x10^3/uL (140-400) 476 x10^3/uL (140-400) Neutrophils (%) (Auto) 76 % (31-73) 79 % (31-73) Lymphocytes (%) (Auto) 11 % (24-48) 12 % (24-48) Monocytes (%) (Auto) 13 % (0-9) 9 % (0-9) Eosinophils (%) (Auto) 0 % (0-3) 0 % (0-3) Basophils (%) (Auto) 0 % (0-3) 0 % (0-3) Neutrophils # (Auto) 7.2 x10^3/uL (1.8-7.7) 8.3 x10^3/uL (1.8-7.7) Lymphocytes # (Auto) 1.0 x10^3/uL (1.0-4.8) 1.3 x10^3/uL (1.0-4.8) Monocytes # (Auto) 1.2 x10^3/uL (0.0-1.1) 0.9 x10^3/uL (0.0-1.1) Eosinophils # (Auto) 0.0 x10^3/uL (0.0-0.7) 0.0 x10^3/uL (0.0-0.7) Basophils # (Auto) 0.0 x10^3/uL (0.0-0.2) 0.0 x10^3/uL (0.0-0.2) Sodium Level 143 mmol/L (136-145) 142 mmol/L (136-145) Potassium Level 3.9 mmol/L (3.5-5.1) 4.8 mmol/L (3.5-5.1) Chloride Level 107 mmol/L (98-107) 104 mmol/L (98-107) Carbon Dioxide Level 28 mmol/L (21-32) 31 mmol/L (21-32) Anion Gap 8 (6-14) 7 (6-14) Blood Urea Nitrogen 26 mg/dL (8-26) 22 mg/dL (8-26) Creatinine 1.0 mg/dL (0.7-1.3) 0.9 mg/dL (0.7-1.3) Estimated GFR (Cockcroft-Gault) 76.0 85.8 Glucose Level 117 mg/dL (70-99) 80 mg/dL (70-99) Calcium Level 8.2 mg/dL (8.5-10.1) 8.4 mg/dL (8.5-10.1) Laboratory Tests Test 10/08/21 06:20 White Blood Count 10.5 x10^3/uL (4.0-11.0) Red Blood Count 4.37 x10^6/uL (4.30-5.70) Hemoglobin 13.8 g/dL (13.0-17.5) Hematocrit 40.3 % (39.0-53.0) Mean Corpuscular Volume 92 fL (79-100) Mean Corpuscular Hemoglobin 32 pg (25-35) Mean Corpuscular Hemoglobin Concent 34 g/dL (31-37) Red Cell Distribution Width 13.9 % (11.5-14.5) Platelet Count 476 x10^3/uL (140-400) Neutrophils (%) (Auto) 79 % (31-73) Lymphocytes (%) (Auto) 12 % (24-48) Monocytes (%) (Auto) 9 % (0-9) Eosinophils (%) (Auto) 0 % (0-3) Basophils (%) (Auto) 0 % (0-3) Neutrophils # (Auto) 8.3 x10^3/uL (1.8-7.7) Lymphocytes # (Auto) 1.3 x10^3/uL (1.0-4.8) Monocytes # (Auto) 0.9 x10^3/uL (0.0-1.1) Eosinophils # (Auto) 0.0 x10^3/uL (0.0-0.7) Basophils # (Auto) 0.0 x10^3/uL (0.0-0.2) Sodium Level 142 mmol/L (136-145) Potassium Level 4.8 mmol/L (3.5-5.1) Chloride Level 104 mmol/L (98-107) Carbon Dioxide Level 31 mmol/L (21-32) Anion Gap 7 (6-14) Blood Urea Nitrogen 22 mg/dL (8-26) Creatinine 0.9 mg/dL (0.7-1.3) Estimated GFR (Cockcroft-Gault) 85.8 Glucose Level 80 mg/dL (70-99) Calcium Level 8.4 mg/dL (8.5-10.1) Medications Current Medications Dexamethasone Sodium Phosphate (Decadron) 6 mg 1X ONCE IVP Last administered on 10/01/21at 21:23; Start 10/01/21 at 21:00; Stop 10/01/21 at 21:01; Status DC Potassium Chloride (Klor-Con) 40 meq 1X ONCE PO Last administered on 10/01/21at 21:23; Start 10/01/21 at 21:30; Stop 10/01/21 at 21:31; Status DC Acetaminophen (Tylenol) 650 mg PRN Q6HRS PRN PO MILD PAIN / TEMP > 100.3'F; Start 10/02/21 at 07:15 Fentanyl Citrate (Fentanyl 2ml Vial) 25 mcg PRN Q3HRS PRN IVP SEVERE PAIN 7-10; Start 10/02/21 at 07:15 Enoxaparin Sodium (Lovenox 40mg Syringe) 40 mg Q24H SQ Last administered on 10/08/21at 09:04; Start 10/02/21 at 09:00 Guaifenesin (Robitussin Dm) 10 ml PRN Q6HRS PRN PO COUGH; Start 10/02/21 at 07:15 Ketorolac Tromethamine (Toradol 30mg Vial) 30 mg PRN Q6HRS PRN IVP INFLAMMATION; Start 10/02/21 at 07:15 Tramadol HCl (Ultram) 50 mg PRN Q6HRS PRN PO MODERATE-SEVERE PAIN; Start 09/04 09/23 at 07:15 Ondansetron HCl (Zofran) 4 mg PRN Q4HRS PRN IVP NAUSEA/VOMITING; Start 10/02/21 at 07:15 Dexamethasone Sodium Phosphate (Decadron) 6 mg DAILY IVP Last administered on 10/08/21at 09:03; Start 10/02/21 at 09:00; Stop 10/10/21 at 09:01 Potassium Chloride/Dextrose/ Sod Cl 1,000 ml @ 75 mls/hr [id number] IV Last administered on 10/02/21at 21:58; Start 10/02/21 at 07:45; Stop 10/03/21 at 10:24; Status DC Aspirin (Aspirin Chewable) 81 mg DAILY PO Last administered on 10/08/21 09:05; Start 10/03/21 at 09:00 Vitamin D (Vitamin D3) 1,000 unit DAILY PO Last administered on 10/08/21at 09:04; Start 10/03/21 at 09:00 Levothyroxine Sodium (Synthroid) 100 mcg DAILY07 PO Last administered on 10/08/21at 06:01; Start 10/03/21 at 07:00 Lisinopril (Prinivil) 40 mg DAILY PO Last administered on 10/08/21 09:05; Start 10/03/21 at 09:00 Ondansetron HCl (Zofran Odt) 4 mg PRN Q6HRS PRN PO nausea; Start 10/02/21 at 20:15 Simvastatin (Zocor) 40 mg QHS PO Last administered on 10/07/21at 20:06; Start 10/02/21 at 21:00 Ascorbic Acid (Vitamin C) 500 mg DAILY PO Last administered on 10/08/21 09:05; Start 10/03/21 at 09:00 Citalopram Hydrobromide (CeleXA) 40 mg DAILY PO Last administered on 10/08/21 09:04; Start 10/03/21 at 09:00 Zolpidem Tartrate (Ambien) 5 mg PRN QHS PRN PO INSOMNIA, MAY REPEAT IN 1HR Last administered on 10/07/21at 20:06; Start 10/03/21 at 00:00 Remdesivir 200 mg/ Sodium Chloride 210 ml @ 210 mls/hr 1X ONCE IV Last administered on 10/03/21at 09:50; Start 10/03/21 at 09:00; Stop 10/03/21 at 09:59; Status DC Remdesivir 100 mg/ Sodium Chloride 230 ml @ 460 mls/hr Q24H IV Last administered on 10/07/21 09:07; Start 10/04/21 at 09:00; Stop 10/07/21 at 09:29; Status DC Doxycycline Hyclate (Vibra-Tab) 100 mg BID PO Last administered on 10/08/21at 09:05; Start 10/05/21 at 13:00; Stop 10/11/21 at 21:01 Loperamide HCl (Imodium) 2 mg 1X PRN PRN PO DIARRHEA; Start 10/07/21 at 20:30; Status Cancel Loperamide HCl (Imodium) 2 mg PRN Q15MIN PRN PO DIARRHEA Last administered on 10/07/21at 20:46; Start 10/07/21 at 20:45 Active Scripts Active Reported Ondansetron Odt (Ondansetron) 4 Mg Tab.rapdis 1 Tab PO PRN Q6-8HRS Vitamin C (Ascorbic Acid) 100 Mg Tablet 1 Tab PO DAILY 30 Days Vitamin D3 (Vitamin D) 25 Mcg Tablet 25 Mcg PO DAILY 1,000 UNITS = 25 MCG Aspirin 81 Mg Tab.chew 1 Tab PO DAILY Lisinopril 40 Mg Tablet 1 Tab PO DAILY Synthroid (Levothyroxine Sodium) 100 Mcg Tablet 1 Tab PO DAILY Citalopram Hbr (Citalopram Hydrobromide) 40 Mg Tablet 1 Tab PO DAILY Simvastatin 40 Mg Tablet 1 Tab PO QHS Vitals/I & O Vital Sign - Last 24 Hours 10/07/21 10/07/21 10/08/21 10/08/21 19:00 20:00 03:00 07:00 Temp 97.8 97.6 98.0 97.8 97.6 98.0 Pulse 63 48 50 Resp 18 18 B/P (MAP) 112/66 (81) 115/72 (86) 142/83 (102) Pulse Ox 95 94 91 O2 Delivery Nasal Cannula Nasal Cannula Nasal Cannula Nasal Cannula O2 Flow Rate 3.0 3.0 3.0 3.0 10/08/21 10/08/21 10/08/21 10/08/21 08:15 09:05 10:42 14:47 Temp 97.6 97.8 97.6 97.8 Pulse 50 62 65 Resp 18 18 B/P (MAP) 142/83 123/67 (85) 133/69 (90) Pulse Ox 93 92 O2 Delivery Nasal Cannula Nasal Cannula Nasal Cannula O2 Flow Rate 3.0 3.0 3.0 Intake and Output 10/07/21 10/07/21 10/08/21 15:00 23:00 07:00 Intake Total 500 ml Output Total 850 ml 150 ml 350 ml Balance -850 ml 350 ml -350 ml Justifications for Admission Other Justification MAYE ALLEN MD Oct 08, 2021 15:08
--- NOTE | 2021-10-08 16:26 | NUR ---
Discharge Note: CHARLOTTE THOMPSON Discharge instructions and discharge home medications reviewed with Patient and a copy given. All questions have been answered and understanding verbalized. The following instructions and handouts were given: Discharge instructions,education and follow up recommendations. Discontinued lines and drains: Peripheral IV discontinued intact. Patient discharged to Home or Self Care with Family Member via Wheelchair off unit by RUFINO
--- NOTE | 2021-10-09 13:13 | DS ---
DATE OF DISCHARGE: 10/08/2021 ADMITTING DIAGNOSIS: COVID-19 respiratory failure. DISCHARGE DIAGNOSES: Resolving COVID-19 respiratory failure, hypertension, hypothyroidism, hyperlipidemia, hypokalemia, bradycardia. CONSULTS: Cardiology. PROCEDURES: None. HOSPITAL COURSE: The patient is a pleasant 61-year-old male who presented with COVID-19 respiratory failure. He was admitted. We treated him with steroids, remdesivir, vitamins, minerals, antibiotics, oxygen, beta agonist, codeine cough syrup, aspirin, Lovenox. Over the next few days, he returned to his baseline. Yesterday, I saw and examined him. He is doing well. We discharged to home. DISPOSITION: Home. ACTIVITY: As tolerated. DIET: Low sodium. DISCHARGE MEDICATIONS: Please see the MRAD. Vitamin C, aspirin 81 a day, vitamin D, citalopram 40 a day, Synthroid 100 a day, lisinopril 40 a day, ondansetron 0.4 q. 6 p.r.n., and simvastatin 40 a day. TOTAL TIME: 32 minutes. CHELO/CATHIE DR: Otto TID: [id number]
== END 2021-10-08 16:29 | disposition home or self-care (01) | DRG 177 ==
LOC: ER 20:28 → ED HOLD 21:15 → 5 NORTH 10-02 16:35
PROVIDERS: ADMIT Student in an Organized Health Care Education/Training Program; ATTEND Student in an Organized Health Care Education/Training Program
PROC: XW033E5 Introduction of Remdesivir Anti-infective into Peripheral Vein, Percutaneous Approach, New Technology Group 5 (ICD-10-PCS; principal; 2021-10-03)
DX: U07.1 COVID-19 (principal); J12.82 Pneumonia due to coronavirus disease 2019; J96.01 Acute respiratory failure with hypoxia; E03.9 Hypothyroidism, unspecified; E66.9 Obesity, unspecified; E78.00 Pure hypercholesterolemia, unspecified; E78.5 Hyperlipidemia, unspecified; E87.6 Hypokalemia; I10 Essential (primary) hypertension; Z82.49 Family history of ischemic heart disease and other diseases of the circulatory system; M19.90 Unspecified osteoarthritis, unspecified site; Z68.32 Body mass index [BMI] 32.0-32.9, adult; Z79.899 Other long term (current) drug therapy
CPT/HCPCS: 36415; 71045; 80048; 80053; 83735; 84145; 84443; 85025; 85027; 85379; 93005; 93308; 94618; J1100; J1650; J3480; J7050; 99285-25; G0378; J7030